=== PATIENT | male | born 1955 ===

== ENCOUNTER 2018-08-21 07:16 | Inpatient (IN) | payer MEDICARE, MEDICAID ==
--- NOTE | 2018-08-21 07:34 | ED PDOC ---
Arrival/HPI - General Historian: Patient - History of Present Illness Narrative History of Present Illness (Text): 08/21/18 07:44 Patient is a 66 yo male with HIV, HCV, kidney disease, and unspecified heart disease who presents with cough and shortness of breath. Patient is a poor historian. He states that he has had symptoms for over a week. He was [place] [facility] [place] where he states he was treated for pneumonia. He does not think they discharged him on any medications. Patient is unsure of his medications in general and is not sure if he is on HIV meds. Patient says cough is productive of nonbloody white sputum. Patient says that he has fevers, chills, and sweats. He also endorses a 15 lb unintentional weight loss over the past month. He reports decreased appetite and nonbloody diarrhea. Time/Duration: > week <Swapna Baig - Last Filed: 08/21/18 10:17> <Dewayne Hartley - Last Filed: 08/22/18 07:18> - General Chief Complaint: Shortness Of Breath Time Seen by Provider: 08/21/18 07:17 Past Medical History - Provider Review Nursing Documentation Reviewed: Yes - Infectious Disease Hx of Infectious Diseases: None - Tetanus Immunization Tetanus Immunization: Unknown - Hematological/Oncological Hx Hepatitis C: Yes Other/Comment: liver failure - Integumentary Hx Dermatological Disorder: No - Musculoskeletal/Rheumatological Hx Musculoskeletal Disorders: No - Psychiatric Hx Substance Use: No - Anesthesia Hx Anesthesia Reactions: No <Swapna Baig - Last Filed: 08/21/18 10:17> Family/Social History Family/Social History: Unknown Family HX Smoking Status: Current Some Days Smoker Hx Alcohol Use: No (quit) Hx Substance Use: No <Swapna Baig - Last Filed: 08/21/18 10:17> Allergies/Home Meds <Swapna Baig - Last Filed: 08/21/18 10:17> <Dewayne Hartley - Last Filed: 08/22/18 07:18> Allergies/Adverse Reactions: Allergies No Known Allergies Allergy (Verified 08/21/18 07:32) Home Medications: Home Meds Medication Instructions Recorded Confirmed Cholecalciferol [Vitamin D] 50,000 unit PO QWK 08/21/18 08/21/18 Cyanocobalamin [Vitamin B12 1000 1 gm PO DAILY 08/21/18 08/21/18 mcg Tab] Furosemide [Lasix] 40 mg PO DAILY 08/21/18 08/21/18 Lactulose [Generlac] 10 gm PO DAILY PRN 08/21/18 08/21/18 Midodrine [Proamatine] 5 mg PO TID 08/21/18 08/21/18 Pantoprazole Sodium [Protonix] 40 mg PO BID 08/21/18 08/21/18 Propranolol [Propranolol HCl] 10 mg PO BID 08/21/18 08/21/18 Spironolactone [Aldactone] 25 mg PO BID 08/21/18 08/21/18 Review of Systems - Review of Systems Constitutional: Fatigue, Weight Change, Fevers, Night Sweats Eyes: Normal ENT: Normal Respiratory: SOB, Cough, Sputum, Wheezing Cardiovascular: absent: Chest Pain, Palpitations, Edema Gastrointestinal: Abdominal Pain, Diarrhea, Anorexia. absent: Nausea, Vomiting Genitourinary Male: absent: Dysuria, Hematuria Musculoskeletal: absent: Arthralgias Skin: absent: Rash, Pruritis, Skin Lesions Neurological: absent: Headache, Dizziness, Focal Weakness Endocrine: Diaphoresis Hemo/Lymphatic: absent: Adenopathy, Easy Bleeding, Easy Bruising <Swapna Baig - Last Filed: 08/21/18 10:17> Physical Exam Vital Signs Reviewed: Yes Vital Signs Temp Pulse Resp BP Pulse Ox 08/21/18 07:33 97.8 F 64 20 116/73 97 Temperature: Afebrile Blood Pressure: Normal Pulse: Regular Respiratory Rate: Normal Appearance: Positive for: Ill-Appearing, Cachectic Pain Distress: None Mental Status: Positive for: Alert and Oriented X 3 - Systems Exam Head: Present: Other (dry skin lesions on scalp, bald patches of hair) Pupils: Present: PERRL Extroacular Muscles: Present: EOMI Conjunctiva: Present: Normal Mouth: Present: Dry, Other (no thrush) Pharnyx: No: ERYTHEMA, EXUDATE Neck: Present: Normal Range of Motion. No: Lymphadenopathy Respiratory/Chest: Present: Wheezes (diffuse), Decreased Breath Sounds, Rales (bibasilar) Cardiovascular: Present: Regular Rate and Rhythm, Other (distant) Abdomen: No: Tenderness, Distention Upper Extremity: Present: Neurovascularly Intact. No: Edema Lower Extremity: Present: Neurovascularly Intact. No: Edema Neurological: Present: GCS=15, CN II-XII Intact, Speech Normal Skin: Present: Warm, Dry, Normal Color Psychiatric: Present: Alert, Oriented x 3 <Swapna Baig - Last Filed: 08/21/18 10:17> Vital Signs Temp Pulse Resp BP Pulse Ox 08/21/18 11:28 73 18 101/64 100 08/21/18 07:41 20 100 08/21/18 07:33 97.8 F 64 20 116/73 97 <NaeemDewayne - Last Filed: 08/22/18 07:18> Medical Decision Making ED Course and Treatment: 08/21/18 08:12 CBC, CMP, Mg, Ph PT/INR/PTT LDH CXR EKG Ibrahim cultures Stool studies 08/21/18 08:[address] Valencia who accepts patient to hospitalist service. Re-evaluation Time: 08:59 Reassessment Condition: Unchanged - Lab Interpretations Lab Results: 08/21/18 08:20 08/21/18 08:20 Lab Results 08/21/18 08:40: NT-Pro-B Natriuret Pep 1790 H 08/21/18 08:40: Blood Type Confirm B POSITIVE 08/21/18 08:40: pO2 34, VBG pH 7.23 L, VBG pCO2 41.0, VBG HCO3 17.2 L, VBG Total CO2 18.5 L, VBG O2 Sat (Calc) 64.9, VBG Base Excess -9.9 L, VBG Potassium 3.7, Glucose 100, Lactate 1.3, FiO2 21.0, Sodium 135.0, Chloride 111.0 H, Venous Blood Potassium 3.7 08/21/18 08:20: Blood Type B POSITIVE, Antibody Screen Negative, BBK History Lashon cked No verified bt 08/21/18 08:20: PT 11.8, INR 1.04, APTT 33.7 08/21/18 08:20: Sodium 138, Potassium 3.8, Chloride 112 H, Carbon Dioxide 17 L, Anion Gap 13, BUN 48 H, Creatinine 3.2 H, Est GFR ( Amer) 24, Est GFR (Non-Af Amer) 20, Random Glucose 104, Calcium 8.1 L, Phosphorus 2.6, Magnesium 1.7, Total Bilirubin 0.6, AST 48, ALT 16, Alkaline Phosphatase 216 H, Lactate Dehydrogenase 505, Total Protein 7.2, Albumin 2.8 L, Globulin 4.3, Albumin/Globulin Ratio 0.7 L 08/21/18 08:20: WBC 8.9, RBC 3.89, Hgb 10.9 L, Hct 33.6 L, MCV 86.4, MCH 28.0, MCHC 32.4, RDW 18.7 H, Plt Count 132, MPV 9.4, Neut % (Auto) 77.3 H, Lymph % (Auto) 15.3 L, Meade % (Auto) 5.1, Eos % (Auto) 2.1, Baso % (Auto) 0.2, Lymph # (Auto) 1.4, Meade # (Auto) 0.5, Eos # (Auto) 0.2, Baso # (Auto) 0.02, Absolute Neuts (auto) 6.90 H I have reviewed the lab results: Yes Interpretation: Abnormal lab values (elev BUN, Cr, BNP, low Hgb) - RAD Interpretation Narrative RAD Interpretations (Text): 08/21/18 09:09 CXR- unremarkable 08/21/18 10:17 CT chest: There is evidence of COPD with hyperaeration of the lungs. There is a bulla along the right chest wall at the junction of the upper and lower lobe. There is a minimal infiltrate at the left lung base and along the right lateral chest wall in the lower lobe. These findings may represent chronic scarring. There is also a minimal interstitial infiltrate or scar in the right middle lobe. Radiology Orders: CXR CT chest Laboratory Analyst: ED Physician - EKG Interpretation EKG Interpretation (Text): 08/21/18 08:20 NSR 68 bpm, low voltage Interpreted by ED Physician: Yes Type: 12 lead EKG Comparison: No previous EKG avail. - Medication Orders Current Medication Orders: 08/21/18 08:14 Solu-Medrol 125 mg IVP Douneb x3 08/21/18 08:18 NS @ 60 cc/hr 08/21/18 10:14 Sodium Chloride (Sodium Chloride 0.9%) 1,000 mls @ 60 mls/hr IV [id number] STA Stop: 08/22/18 00:57 Last Admin: 08/21/18 08:35 Dose: 60 mls/hr eMAR Start Stop Document 08/21/18 08:35 MR (Rec: 08/21/18 08:36 [id number]) Intravenous Solution Start Date 08/21/18 Start Time 08:36 Azithromycin (Zithromax 500mg In Ns) 500 mg in 250 mls @ 167 mls/hr IVPB STAT STA; Protocol Stop: 08/21/18 10:23 Discontinued Medications Albuterol Sulfate (Albuterol 0.083% Inhal Claudine (2.5 Mg/3 Ml) Ud) 2.5 mg INH STAT STA Stop: 08/21/18 09:02 Albuterol/Ipratropium (Duoneb 3 Mg/0.5 Mg (3 Ml) Ud) 3 ml IH STAT STA Stop: 08/21/18 08:01 Last Admin: 08/21/18 08:35 Dose: 3 ml Albuterol/Ipratropium (Duoneb 3 Mg/0.5 Mg (3 Ml) Ud) 3 ml IH Q15M SUKUMAR Stop: 08/21/18 08:46 Methylprednisolone (Solu-Medrol) 125 mg IVP STAT STA Stop: 08/21/18 08:01 Last Admin: 08/21/18 08:35 Dose: 125 mg IVP Administration Document 08/21/18 08:35 MR (Rec: 08/21/18 08:35 [id number]) Charges for Administration # of IVP Administrations 1 <Swapna Baig - Last Filed: 08/21/18 10:17> - Lab Interpretations Lab Results: pO2 34 mm/Hg (30-55) 08/21/18 08:40 VBG pH 7.23 (7.32-7.43) L 08/21/18 08:40 VBG pCO2 41.0 (40-60) 08/21/18 08:40 VBG HCO3 17.2 mmol/l (21-28) L 08/21/18 08:40 VBG Total CO2 18.5 mmol.L (22-28) L 08/21/18 08:40 VBG O2 Sat (Calc) 64.9 % (40-65) 08/21/18 08:40 VBG Base Excess -9.9 mmol/L (0.0-2.0) L 08/21/18 08:40 VBG Potassium 3.7 mmol/L (3.6-5.2) 08/21/18 08:40 Sodium 135.0 mmol/L (132-148) 08/21/18 08:40 Chloride 111.0 mmol/L (98-107) H 08/21/18 08:40 Glucose 100 mg/dl (75-110) 08/21/18 08:40 Lactate 1.3 mmol/L (0.7-2.1) 08/21/18 08:40 FiO2 21.0 % 08/21/18 08:40 PT 11.8 SECONDS (9.4-12.5) 08/21/18 08:20 INR 1.04 08/21/18 08:20 APTT 33.7 Seconds (26.9-38.3) 08/21/18 08:20 NT-Pro-B Natriuret Pep 1790 pg/mL (0-450) H 08/21/18 08:40 Total Bilirubin 0.6 mg/dL (0.2-1.3) 08/21/18 08:20 AST 48 U/L (17-59) 08/21/18 08:20 ALT 16 U/L (7-56) 08/21/18 08:20 Alkaline Phosphatase 216 U/L (38-126) H 08/21/18 08:20 Total Protein 7.2 g/dL (5.8-8.3) 08/21/18 08:20 Albumin 2.8 g/dL (3.0-4.8) L 08/21/18 08:20 Globulin 4.3 gm/dL 08/21/18 08:20 Albumin/Globulin Ratio 0.7 (1.1-1.8) L 08/21/18 08:20 08/21/18 08:20 08/21/18 08:20 Lab Results 08/21/18 08:40: Hepatitis A IgM Ab Negative, Hep Bs Antigen Negative, Hep B Core IgM Ab Negative, Hepatitis C Antibody Negative 08/21/18 08:40: NT-Pro-B Natriuret Pep 1790 H 08/21/18 08:40: Blood Type Confirm B POSITIVE 08/21/18 08:40: pO2 34, VBG pH 7.23 L, VBG pCO2 41.0, VBG HCO3 17.2 L, VBG Total CO2 18.5 L, VBG O2 Sat (Calc) 64.9, VBG Base Excess -9.9 L, VBG Potassium 3.7, Glucose 100, Lactate 1.3, FiO2 21.0, Sodium 135.0, Chloride 111.0 H, Venous Blood Potassium 3.7 08/21/18 08:20: Blood Type B POSITIVE, Antibody Screen Negative, BBK History Checked No verified bt 08/21/18 08:20: PT 11.8, INR 1.04, APTT 33.7 08/21/18 08:20: Sodium 138, Potassium 3.8, Chloride 112 H, Carbon Dioxide 17 L, Anion Gap 13, BUN 48 H, Creatinine 3.2 H, Est GFR ( Amer) 24, Est GFR (Non-Af Amer) 20, Random Glucose 104, Calcium 8.1 L, Phosphorus 2.6, Magnesium 1.7, Total Bilirubin 0.6, AST 48, ALT 16, Alkaline Phosphatase 216 H, Lactate Dehydrogenase 505, Total Protein 7.2, Albumin 2.8 L, Globulin 4.3, Albumin/Globulin Ratio 0.7 L 08/21/18 08:20: WBC 8.9, RBC 3.89, Hgb 10.9 L, Hct 33.6 L, MCV 86.4, MCH 28.0, MCHC 32.4, RDW 18.7 H, Plt Count 132, MPV 9.4, Neut % (Auto) 77.3 H, Lymph % (Auto) 15.3 L, Meade % (Auto) 5.1, Eos % (Auto) 2.1, Baso % (Auto) 0.2, Lymph # (Auto) 1.4, Meade # (Auto) 0.5, Eos # (Auto) 0.2, Baso # (Auto) 0.02, Absolute Neuts (auto) 6.90 H - RAD Interpretation Radiology Orders: 08/21/18 07:35 CXR [CHEST PORTABLE] [RAD] Stat 08/21/18 08:25 CHEST W/O CONTRAST [CT] Stat - Medication Orders Current Medication Orders: Albuterol/Ipratropium (Duoneb 3 Mg/0.5 Mg (3 Ml) Ud) 3 ml IH [id number] SUKUMAR Last Admin: 08/22/18 02:59 Dose: Not Given Non-Admin Reason: Patient Refused Albuterol/Ipratropium (Duoneb 3 Mg/0.5 Mg (3 Ml) Ud) 3 ml IH Q2H PRN PRN Reason: Shortness of Breath Furosemide (Lasix) 40 mg PO DAILY [facility] Guaifenesin (Robitussin) 100 mg PO Q4H PRN PRN Reason: Cough Heparin Sodium (Porcine) (Heparin) 5,000 units SC Q12 SUKUMAR; Protocol Last Admin: 08/21/18 21:37 Dose: 5,000 units Subcutaneous Administrations Document 08/21/18 21:37 PCU (Rec: 08/21/18 21:37 [place] [facility] [id number] Injection Site MAR Injection Site Right Abdomen Charges for Administration # of Subcutaneous Administrations 1 Cefepime HCl (Maxipime 2gm) 2 gm in 100 mls @ 100 mls/hr IVPB DAILY [facility]; Protocol Stop: 08/27/18 10:01 Azithromycin (Zithromax 500mg In Ns) 500 mg in 250 mls @ 167 mls/hr IVPB DAILY [facility]; Protocol Methylprednisolone (Solu-Medrol) 40 mg IVP DAILY [facility] Midodrine (Proamatine) 5 mg PO TID [facility] Last Admin: 08/21/18 17:39 Dose: 5 mg Pantoprazole Sodium (Protonix Ec Tab) 40 mg PO 0600,1600 [facility] Last Admin: 08/22/18 05:40 Dose: 40 mg Propranolol HCl (Inderal) 10 mg PO BID [facility] Last Admin: 08/21/18 17:39 Dose: 10 mg MAR Pulse and Blood Pressure Document 08/21/18 17:39 [facility] (Rec: 08/21/18 17:42 [id number] Blood Pressure Blood Pressure (100/60-150/90) 115/71 Spironolactone (Aldactone) 25 mg PO DAILY [facility] Discontinued Medications Albuterol Sulfate (Albuterol 0.083% Inhal Claudine (2.5 Mg/3 Ml) Ud) 2.5 mg INH STAT STA Stop: 08/21/18 09:02 Last Admin: 08/21/18 11:03 Dose: 2.5 mg Albuterol/Ipratropium (Duoneb 3 Mg/0.5 Mg (3 Ml) Ud) 3 ml IH STAT STA Stop: 08/21/18 08:01 Last Admin: 08/21/18 08:35 Dose: 3 ml Albuterol/Ipratropium (Duoneb 3 Mg/0.5 Mg (3 Ml) Ud) 3 ml IH Q15M SUKUMAR Stop: 08/21/18 08:46 Last Admin: 08/21/18 10:31 Dose: 3 ml Sodium Chloride (Sodium Chloride 0.9%) 1,000 mls @ 60 mls/hr IV .[id number] STA Stop: 08/22/18 00:57 Last Admin: 08/21/18 08:35 Dose: 60 mls/hr eMAR Start Stop Document 08/21/18 08:35 MR (Rec: 08/21/18 08:36 MR [id number]) Intravenous Solution Start Date 08/21/18 Start Time 08:36 Azithromycin (Zithromax 500mg In Ns) 500 mg in 250 mls @ 167 mls/hr IVPB STAT STA; Protocol Stop: 08/21/18 10:23 Last Admin: 08/21/18 10:25 Dose: 167 mls/hr eMAR Start Stop Document 08/21/18 10:25 MR (Rec: 08/21/18 10:30 MR [id number]) Intravenous Solution Start Date 08/21/18 Start Time 10:30 End Date 08/21/18 End time 12:00 Total Infusion Time 90 Vancomycin HCl (Vancomycin 1gm) 1 gm in 250 mls @ 167 mls/hr IVPB STAT STA; Protocol Stop: 08/22/18 00:54 Last Admin: 08/21/18 23:42 Dose: 167 mls/hr eMAR Start Stop Document 08/21/18 23:42 PCU (Rec: 08/21/18 23:43 [place] [facility] [id number] Intravenous Solution Start Date 08/21/18 Start Time 23:43 End Date 08/22/18 End time 01:13 Total Infusion Time 90 Methylprednisolone (Solu-Medrol) 125 mg IVP STAT STA Stop: 08/21/18 08:01 Last Admin: 08/21/18 08:35 Dose: 125 mg IVP Administration Document 08/21/18 08:35 MR (Rec: 05/18/19 08:35 MR [id number]) Charges for Administration # of IVP Administrations 1 Ondansetron HCl (Zofran Inj) 4 mg IVP ONCE ONE Stop: 08/22/18 05:59 Last Admin: 08/22/18 06:25 Dose: 4 mg IVP Administration Document 08/22/18 06:25 PCU (Rec: 08/22/18 06:25 [place] [facility] [id number] Charges for Administration # of IVP Administrations 1 Pneumococcal Polyvalent Vaccine (Pneumovax 23 Vaccine) 0.5 ml IM .ONCE ONE Stop: 08/21/18 14:01 <Dewayne Hartley - Last Filed: 08/22/18 07:18> Disposition/Present on Arrival - Present on Arrival Any Indicators Present on Arrival: No History of DVT/PE: No History of Uncontrolled Diabetes: No Urinary Catheter: No History of Decub. Ulcer: No History Surgical Site Infection Following: None - Disposition Have Diagnosis and Disposition been Completed?: Yes Disposition Time: 09:01 Patient Plan: Admission <Swapna Baig - Last Filed: 08/21/18 10:17> <Dewayne Hartley - Last Filed: 08/22/18 07:18> - Disposition Diagnosis: Respiratory tract infection Disposition: HOSPITALIZED Condition: GUARDED
[2018-08-21] MEDS ORDERED: Albuterol-Ipratrop 3 mg / 0.5 (3 ml) UD IH STA (08:00)
[2018-08-21] MEDS ORDERED: Sodium Chloride 0.9% 1,000 ML IV STA (08:18)
[2018-08-21 08:32] LABS: BASO # 0.02 K/mm3 (0.0-2.0); BASO % 0.2 % (0.0-3.0); EOS # 0.2 (0.0-0.7); EOS % 2.1 % (1.5-5.0); HEMOGLOBIN 10.9 g/dL (14.0-18.0); LYMPH # 1.4 (1.2-3.4); LYMPH % 15.3 % (22.0-35.0); MEAN CELL VOLUME 86.4 fl (80.0-105.0); MEAN CORPUSCULAR HGB CONC 32.4 g/dl (31.0-37.0); MEAN PLATELET VOLUME 9.4 fl (7.0-11.0); MONO # 0.5 (0.1-0.6); MONO % 5.1 % (1.0-6.0); RBC 3.89 10^6/uL (3.5-6.1); RED CELL DISTRIBUTION WIDTH 18.7 % (11.5-14.5); WHITE BLOOD COUNT 8.9 10^3/uL (4.5-11.0)
[2018-08-21 08:41] LABS: INR 1.04; PARTIAL THROMBOPLASTIN TIME 33.7 Seconds (26.9-38.3); PROTHROMBIN TIME 11.8 SECONDS (9.4-12.5)
--- NOTE | 2018-08-21 08:41 | RAD ---
Date of service: 08/21/2018 HISTORY: cough COMPARISON: No prior. TECHNIQUE: 1 view obtained. FINDINGS: LUNGS: No active pulmonary disease. PLEURA: No significant pleural effusion identified, no pneumothorax apparent. CARDIOVASCULAR: Aortic calcification Normal cardiac size. No pulmonary vascular congestion. OSSEOUS STRUCTURES: No significant abnormalities. VISUALIZED UPPER ABDOMEN: Normal. OTHER FINDINGS: None. IMPRESSION: No active disease.
[2018-08-21 08:48] LABS: ALB/GLOB RATIO 0.7 (1.1-1.8); ALBUMIN 2.8 g/dL (3.0-4.8); CALCIUM 8.1 mg/dL (8.4-10.5)
[2018-08-21] MEDS ORDERED: Azithromycin 500MG/NS 250ml 500 MG/250 ML BAG IVPB STA (08:54)
[2018-08-21] MEDS ORDERED: Albuterol 0.083% Inhal Sol (2.5 mg/3 mL) UD INH STA (09:01)
[2018-08-21 09:06] LABS: VENOUS BLOOD GAS BASE EXCESS -9.9 mmol/L (0.0-2.0); VENOUS BLOOD GAS PO2 34 mm/Hg (30-55); VENOUS BLOOD PH 7.23 (7.32-7.43)
--- NOTE | 2018-08-21 09:39 | CT ---
Date of service: 08/21/2018 PROCEDURE: CT Chest without contrast HISTORY: persistent cough COMPARISON: None available. TECHNIQUE: Contiguous axial images were obtained through the chest without intravenous contrast enhancement. Sagittal and coronal reconstructions were performed. Radiation dose: Total exam DLP = 151.99 mGy-cm. This CT exam was performed using one or more of the following dose reduction techniques: Automated exposure control, adjustment of the mA and/or kV according to patient size, and/or use of iterative reconstruction technique. FINDINGS: LUNGS: There is evidence of COPD with hyperaeration of the lungs. There is a bulla along the right chest wall at the junction of the upper and lower lobe. There is a minimal infiltrate at the left lung base and along the right lateral chest wall in the lower lobe. These findings may represent chronic scarring. There is also a minimal interstitial infiltrate or scar in the right middle lobe. MEDIASTINUM: Unremarkable thoracic aorta. No aneurysm. Normal sized heart. Main pulmonary artery unremarkable. No vascular congestion. No lymphadenopathy. Aortic calcification PLEURA: No pleural fluid. No pneumothorax. BONES: No fracture. No destructive lesion. UPPER ABDOMEN: Grossly unremarkable. OTHER FINDINGS: None. IMPRESSION: There is evidence of COPD with hyperaeration of the lungs. There is a bulla along the right chest wall at the junction of the upper and lower lobe. There is a minimal infiltrate at the left lung base and along the right lateral chest wall in the lower lobe. These findings may represent chronic scarring. There is also a minimal interstitial infiltrate or scar in the right middle lobe.
[2018-08-21] MEDS: Albuterol-Ipratrop 3 mg / 0.5 (3 ml) UD IH SCH ×4 (10:20→19:59)
--- NOTE | 2018-08-21 10:31 | CP.PCM.HP ---
<Silver Manzo - Last Filed: 08/21/18 12:02> History of Present Illness - History of Present Illness History of Present Illness: H&P for hospitalist service - FionaPhoenix Manzo PGY3 cc: shortness of breath HPI: Patient is a 63yo male with past medical history of HIV (unknown CD4 count or viral load), Hepatitis C, CKD that presents to [facility] with c/o shortness of breath. He reports that for the past week he has been having shortness of breath associated with nonproductive cough, fevers, chills, fatigue/lethargy. He also endorsed epigastric abdominal pain associated with diarrhea (4 loose, nonbloody bowel movements yesterday). Patient states that he had been at [facility] [place] [facility] a few days ago and was there for approximately 4 days when he signed out against medical advice. He reported being treated for the same complaint. Mr. Haq also noted that he had been f ollowing up with the [facility] hepatology clinic for cirrhosis treatment and received paracentesis every few weeks. Denies chest pain, palpitations, nausea, vomiting, hematemesis, hematochezia, melena, numbness, tingling. 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[employer]) Family Hx: Mother: Diabetes; Father: denies PMD: Grace Castillo Medications verified by [facility] ([facility]): Midodrine 5mg TID, Propranolol 10mg BID, Spironolactone 25mg BID, Lasix 40mg daily, Protonix 40mg BID, Lactulose PRN Present on Admission - Present on Admission Any Indicators Present on Admission: No Past Patient History - Infectious Disease Hx of Infectious Diseases: None - Tetanus Immunizations Tetanus Immunization: Unknown - Past Social History Smoking Status: Current Some Days Smoker - HEMATOLOGICAL/ONCOLOGICAL Hx Hepatitis C: Yes Other/Comment: liver failure - INTEGUMENTARY Hx Dermatological Problems: No - MUSCULOSKELETAL/RHEUMATOLOGICAL Hx Musculoskeletal Disorders: No - PSYCHIATRIC Hx Substance Use: No - ANESTHESIA Hx Anesthesia Reactions: No Meds Home Medications: Home Medication List Medication Instructions Recorded Confirmed Type Cholecalciferol (Vitamin D3) 50,000 unit PO QWK #2 capsule 08/25/18 Rx [Vitamin D3] Cyanocobalamin [Vitamin B12 1000 1,000 mcg PO DAILY #7 tab 08/25/18 Rx mcg Tab] Furosemide [Lasix] 40 mg PO DAILY 7 Days #7 tab 08/25/18 Rx Lactulose [Generlac] 10 gm PO DAILY PRN 7 Days #7 dose 08/25/18 Rx Magnesium Oxide [Mag-Ox] 400 mg PO BID #14 tab 08/25/18 Rx Midodrine [Proamatine] 5 mg PO TID 7 Days #21 tab 08/25/18 Rx Pantoprazole Sodium [Protonix] 40 mg PO BID 7 Days #14 tablet.dr 08/25/18 Rx Phosphorus/Potassium/Sodium 1 pkt PO DAILY #7 packet 08/25/18 Rx [Neutra-Phos] Propranolol [Inderal] 10 mg PO BID 7 Days #14 tab 08/25/18 Rx Rifaximin [Xifaxan] 550 mg PO BID #14 tablet 08/25/18 Rx Simethicone [Gas Relief] 125 mg PO DAILY #7 capsule 08/25/18 Rx Spironolactone [Aldactone] 25 mg PO DAILY #7 tab 08/25/18 Rx Allergies/Adverse Reactions: Allergies Allergy/AdvReac Type Severity Reaction Status Date / Time No Known Allergies Allergy Verified 08/21/18 07:32 Physical Exam - Constitutional Appears: Cachectic, Chronically Ill - Head Exam Head Exam: ATRAUMATIC, NORMOCEPHALIC - Eye Exam Eye Exam: EOMI, Scleral icterus Pupil Exam: PERRL - ENT Exam ENT Exam: Mucous Membranes Moist - Neck Exam Neck exam: Positive for: Normal Inspection. Negative for: Lymphadenopathy, Tenderness, Thyromegaly - Respiratory Exam Respiratory Exam: Decreased Breath Sounds. absent: Rales, Rhonchi, Wheezes - Cardiovascular Exam Cardiovascular Exam: +S1, +S2. absent: Gallop, Rubs - GI/Abdominal Exam GI & Abdominal Exam: Organomegaly, Soft, Tenderness (epigastric). absent: Rebound, Rigid - Extremities Exam Extremities exam: Positive for: normal inspection. Negative for: pedal edema, tenderness - Neurological Exam Neurological exam: Alert, CN II-XII Intact, Oriented x3 - Psychiatric Exam Psychiatric exam: Normal Affect, Normal Mood - Skin Skin Exam: Dry, Intact, Normal Color, Warm Results - Vital Signs Recent Vital Signs: Last Vital Signs Temp 97.8 F 08/21/18 07:33 Pulse 64 08/21/18 07:33 Resp 20 08/21/18 07:41 BP 116/73 08/21/18 07:33 Pulse Ox 100 08/21/18 07:41 - Labs Result Diagrams: 08/21/18 08:20 08/21/18 08:20 Labs: Laboratory Results - last 24 hr 08/21/18 08/21/18 08/21/18 08:20 08:20 08:20 WBC 8.9 RBC 3.89 Hgb 10.9 L Hct 33.6 L MCV 86.4 MCH 28.0 MCHC 32.4 RDW 18.7 H Plt Count 132 MPV 9.4 Neut % (Auto) 77.3 H Lymph % (Auto) 15.3 L Mclean % (Auto) 5.1 Eos % (Auto) 2.1 Baso % (Auto) 0.2 Lymph # (Auto) 1.4 Mclean # (Auto) 0.5 Eos # (Auto) 0.2 Baso # (Auto) 0.02 Absolute Neuts (auto) 6.90 H PT 11.8 INR 1.04 APTT 33.7 pO2 VBG pH VBG pCO2 VBG HCO3 VBG Total CO2 VBG O2 Sat (Calc) VBG Base Excess VBG Potassium Glucose Lactate FiO2 Sodium 138 Potassium 3.8 Chloride 112 H Carbon Dioxide 17 L Anion Gap 13 BUN 48 H Creatinine 3.2 H Est GFR ( Amer) 24 Est GFR (Non-Af Amer) 20 Random Glucose 104 Calcium 8.1 L Phosphorus 2.6 Magnesium 1.7 Total Bilirubin 0.6 AST 48 ALT 16 Alkaline Phosphatase 216 H Lactate Dehydrogenase 505 NT-Pro-B Natriuret Pep Total Protein 7.2 Albumin 2.8 L Globulin 4.3 Albumin/Globulin Ratio 0.7 L Venous Blood Potassium Blood Type Blood Type Confirm Antibody Screen BBK History Checked 08/21/18 08/21/18 08/21/18 08:20 08:40 08:40 WBC RBC Hgb Hct MCV MCH MCHC RDW Plt Count MPV Neut % (Auto) Lymph % (Auto) Mclean % (Auto) Eos % (Auto) Baso % (Auto) Lymph # (Auto) Mclean # (Auto) Eos # (Auto) Baso # (Auto) Absolute Neuts (auto) PT INR APTT pO2 34 VBG pH 7.23 L VBG pCO2 41.0 VBG HCO3 17.2 L VBG Total CO2 18.5 L VBG O2 Sat (Calc) 64.9 VBG Base Excess -9.9 L VBG Potassium 3.7 Glucose 100 Lactate 1.3 FiO2 21.0 Sodium 135.0 Potassium Chloride 111.0 H Carbon Dioxide Anion Gap BUN Creatinine Est GFR ( Amer) Est GFR (Non-Af Amer) Random Glucose Calcium Phosphorus Magnesium Total Bilirubin AST ALT Alkaline Phosphatase Lactate Dehydrogenase NT-Pro-B Natriuret Pep Total Protein Albumin Globulin Albumin/Globulin Ratio Venous Blood Potassium 3.7 Blood Type B POSITIVE Blood Type Confirm B POSITIVE Antibody Screen Negative BBK History Checked No verified bt 08/21/18 08:40 WBC RBC Hgb Hct MCV MCH MCHC RDW Plt Count MPV Neut % (Auto) Lymph % (Auto) Mclean % (Auto) Eos % (Auto) Baso % (Auto) Lymph # (Auto) Mclean # (Auto) Eos # (Auto) Baso # (Auto) Absolute Neuts (auto) PT INR APTT pO2 VBG pH VBG pCO2 VBG HCO3 VBG Total CO2 VBG O2 Sat (Calc) VBG Base Excess VBG Potassium Glucose Lactate FiO2 Sodium Potassium Chloride Carbon Dioxide Anion Gap BUN Creatinine Est GFR ( Amer) Est GFR (Non-Af Amer) Random Glucose Calcium Phosphorus Magnesium Total Bilirubin AST ALT Alkaline Phosphatase Lactate Dehydrogenase NT-Pro-B Natriuret Pep 1790 H Total Protein Albumin Globulin Albumin/Globulin Ratio Venous Blood Potassium Blood Type Blood Type Confirm Antibody Screen BBK History Checked Assessment & Plan - Assessment and Plan (Free Text) Plan: 63yo male with history of hepatitis C, HIV with unknown viral load/CD4 count, CKD, cirrhosis, COPD presents to [facility] with c/o shortness of breath associated with fever, chills, cough 1. Shortness of breath r/o pneumonia vs COPD vs bronchitis -afebrile, no leukocytosis -BP within normal limits -O2 via nasal cannula -HOB > 30' -CXR reviewed; revealed no active disease -CT Chest pending -Patient given azithromycin in the ED -Blood, urine, sputum and stool cultures pending -Procalcitonin is pending -Strep Pna and legionella pending -Hepatitis panel pending -Continue cefepime 2g daily and azithromycin -duoneb nikki and PRN -robitussin for cough -solumedrol 40 BID -ID consulted -Dr. Romeo 2. HIV/AIDS -4th gen HIV panel pending -CD4 count pending -ID consulted 3. Hepatitis C -Hepatitis panel pending 4. GI/DVT Prophylaxis -Protonix/Heparin Patient seen and case discussed/reviewed with attending, Dr. Valencia <Lydia Valencia - Last Filed: 08/25/18 15:44> Results - Vital Signs Recent Vital Signs: Last Vital Signs Temp 97.4 F L 08/21/18 14:00 Pulse 68 08/21/18 14:00 Resp 18 08/21/18 14:00 BP 115/71 08/21/18 14:00 Pulse Ox 99 08/21/18 14:00 - Labs Result Diagrams: 08/25/18 06:30 08/25/18 06:30 Labs: Laboratory Results - last 24 hr 08/21/18 08/21/18 08/21/18 08:20 08:20 08:20 WBC 8.9 RBC 3.89 Hgb 10.9 L Hct 33.6 L MCV 86.4 MCH 28.0 MCHC 32.4 RDW 18.7 H Plt Count 132 MPV 9.4 Neut % (Auto) 77.3 H Lymph % (Auto) 15.3 L Mclean % (Auto) 5.1 Eos % (Auto) 2.1 Baso % (Auto) 0.2 Lymph # (Auto) 1.4 Mclean # (Auto) 0.5 Eos # (Auto) 0.2 Baso # (Auto) 0.02 Absolute Neuts (auto) 6.90 H PT 11.8 INR 1.04 APTT 33.7 pO2 VBG pH VBG pCO2 VBG HCO3 VBG Total CO2 VBG O2 Sat (Calc) VBG Base Excess VBG Potassium Glucose Lactate FiO2 Sodium 138 Potassium 3.8 Chloride 112 H Carbon Dioxide 17 L Anion Gap 13 BUN 48 H Creatinine 3.2 H Est GFR ( Amer) 24 Est GFR (Non-Af Amer) 20 Random Glucose 104 Calcium 8.1 L Phosphorus 2.6 Magnesium 1.7 Total Bilirubin 0.6 AST 48 ALT 16 Alkaline Phosphatase 216 H Lactate Dehydrogenase 505 NT-Pro-B Natriuret Pep Total Protein 7.2 Albumin 2.8 L Globulin 4.3 Albumin/Globulin Ratio 0.7 L Venous Blood Potassium Blood Type Blood Type Confirm Antibody Screen BBK History Checked 08/21/18 08/21/18 08/21/18 08:20 08:40 08:40 WBC RBC Hgb Hct MCV MCH MCHC RDW Plt Count MPV Neut % (Auto) Lymph % (Auto) Mclean % (Auto) Eos % (Auto) Baso % (Auto) Lymph # (Auto) Mclean # (Auto) Eos # (Auto) Baso # (Auto) Absolute Neuts (auto) PT INR APTT pO2 34 VBG pH 7.23 L VBG pCO2 41.0 VBG HCO3 17.2 L VBG Total CO2 18.5 L VBG O2 Sat (Calc) 64.9 VBG Base Excess -9.9 L VBG Potassium 3.7 Glucose 100 Lactate 1.3 FiO2 21.0 Sodium 135.0 Potassium Chloride 111.0 H Carbon Dioxide Anion Gap BUN Creatinine Est GFR ( Amer) Est GFR (Non-Af Amer) Random Glucose Calcium Phosphorus Magnesium Total Bilirubin AST ALT Alkaline Phosphatase Lactate Dehydrogenase NT-Pro-B Natriuret Pep Total Protein Albumin Globulin Albumin/Globulin Ratio Venous Blood Potassium 3.7 Blood Type B POSITIVE Blood Type Confirm B POSITIVE Antibody Screen Negative BBK History Checked No verified bt 08/21/18 08:40 WBC RBC Hgb Hct MCV MCH MCHC RDW Plt Count MPV Neut % (Auto) Lymph % (Auto) Mclean % (Auto) Eos % (Auto) Baso % (Auto) Lymph # (Auto) Mclean # (Auto) Eos # (Auto) Baso # (Auto) Absolute Neuts (auto) PT INR APTT pO2 VBG pH VBG pCO2 VBG HCO3 VBG Total CO2 VBG O2 Sat (Calc) VBG Base Excess VBG Potassium Glucose Lactate FiO2 Sodium Potassium Chloride Carbon Dioxide Anion Gap BUN Creatinine Est GFR ( Amer) Est GFR (Non-Af Amer) Random Glucose Calcium Phosphorus Magnesium Total Bilirubin AST ALT Alkaline Phosphatase Lactate Dehydrogenase NT-Pro-B Natriuret Pep 1790 H Total Protein Albumin Globulin Albumin/Globulin Ratio Venous Blood Potassium Blood Type Blood Type Confirm Antibody Screen BBK History Checked Attending/Attestation - Attestation I have personally seen and examined this patient.: Yes I have fully participated in the care of the patient.: Yes I have reviewed all pertinent clinical information: Yes Notes (Text): 08/25/18 15:36 Attending note; Patient seen and examined with resident in ER. Patient is a poor historian. History is unreliable. Patient is getting upset upon further questioning. we will try to get information from the family. This is his first admission to be on hospital. Patient is a 63yo male with past medical history of HIV (unknown CD4 count or viral load), Hepatitis C, CKD that presents to [facility] with c/o shortness of breath. He reports that for the past week he has been having shortness of breath associated with nonproductive cough, fevers, chills, fatigue/lethargy. 1. Shortness of breath. secondary to likely COPD, possible pneumonia. Chest x-ray shows no active disease. Continue oxygen, DuoNeb and IV Solu-Medrol. Started on IV cefepime and Zithromax. Patient is cachectic. ID evaluation requested. CT chest ordered. 2. Liver cirrhosis/abdominal distention; history of Hep C and alcohol abuse. Continue home propanolol. Continue home lasix and aldactone with home midodrine. Abdominal ultrasound ordered to evaluate the ascites. 3. CKD. Unsure of baseline creatinine. BUN/Cr stable. follow up Closely. 4. Anemia. Likely secondary to chronic disease. No acute bleeding. 5. Diarrhea. C-diff ordered. 6. History of HIV. HIV-1 RNA pending. HIV 1/2 ag/ab pending. ID recommendations appreciated. 7. Thrombocytopenia. Likely secondary to liver cirrhosis. 8. GI/DVT prophylaxis. Protonix/SCDS Palliative care evaluation requested. Patient is cachectic. Patient was recently discharged from [facility]. He is not sure about his diagnosis and treatment options. Patient also states that he follows up with Dr. ysabel Ovalles. We will request medical records from [facility] We will also try to get in touch with family for further information.
[2018-08-21] MEDS ORDERED: guaiFENesin 100 mg/5 ml Syrup UD PO PRN (11:31)
[2018-08-21] MEDS ORDERED: Albuterol-Ipratrop 3 mg / 0.5 (3 ml) UD IH PRN (11:32)
[2018-08-21 13:58] VITALS: BMI 20.3
[2018-08-21] MEDS ORDERED: Pneumococcal 23-Valent Vaccine IM ONE (14:00)
[2018-08-21 16:51] LABS: HEPATITIS B SURFACE AG Negative (NEGATIVE)
[2018-08-21 16:57] LABS: HEPATITIS A IGM NEGATIVE (NEGATIVE); HEPATITIS B CORE AB NEGATIVE (NEGATIVE)
[2018-08-21 17:08] LABS: HEPATITIS C ANTIBODY NEGATIVE (NEGATIVE)
[2018-08-21] MEDS: Pantoprazole 40 mg EC Tab PO SCH (17:42)
--- NOTE | 2018-08-21 19:10 | CARD ---
APPROVED REPORT Date of service: 08/21/2018 EKG Measurement Heart [id number] <Conclusion> Sinus rhythm with fusion complexes Left axis deviation Low voltage QRS Cannot rule out Anterior infarct, age undetermined Abnormal ECG
[2018-08-21] MEDS ORDERED: Vancomycin 1gm in NS 250ml 1 GM/250 ML BAG IVPB STA (23:25)
[2018-08-22] MEDS: Albuterol-Ipratrop 3 mg / 0.5 (3 ml) UD IH SCH ×4 (02:59→20:22)
[2018-08-22] MEDS: Pantoprazole 40 mg EC Tab PO SCH ×2 (05:40→18:00)
[2018-08-22 07:46] LABS: HEMOGLOBIN 9.5 g/dL (14.0-18.0); LYMPH # 0.8 (1.2-3.4); LYMPH % 10.2 % (22.0-35.0); MEAN CELL VOLUME 85.5 fl (80.0-105.0); MEAN CORPUSCULAR HEMOGLOBIN 27.5 pg (25.0-35.0); MEAN CORPUSCULAR HGB CONC 32.1 g/dl (31.0-37.0); MEAN PLATELET VOLUME 9.4 fl (7.0-11.0); MONO # 0.3 (0.1-0.6); MONO % 3.2 % (1.0-6.0); RBC 3.46 10^6/uL (3.5-6.1); RED CELL DISTRIBUTION WIDTH 18.6 % (11.5-14.5); WHITE BLOOD COUNT 8.2 10^3/uL (4.5-11.0)
[2018-08-22 08:12] LABS: ALB/GLOB RATIO 0.6 (1.1-1.8); ALBUMIN 2.4 g/dL (3.0-4.8); CALCIUM 7.9 mg/dL (8.4-10.5)
--- NOTE | 2018-08-22 09:13 | US ---
Date of service: 08/22/2018 HISTORY: hepatitis c , ascites COMPARISON: None. TECHNIQUE: Sonographic evaluation of the abdomen. FINDINGS: LIVER: Measures 13.72 x 6.7 cm. Increased echogenicity of the liver parenchyma. There is an irregular contour consistent with cirrhosis. The liver is hypervascular. Normal directional flow is seen in the hepatic and portal veins. There is a large amount of ascites GALLBLADDER: Removed COMMON BILE DUCT: Measures 3 mm. No stones. No dilatation. PANCREAS: Unremarkable as visualized. No mass. No ductal dilatation. RIGHT KIDNEY: Measures 9.12 x 3.57 x 4.96cm. Normal echogenicity. No calculus, mass, or hydronephrosis. LEFT KIDNEY: Measures 8.04 x 4.0 x 4.17cm. Normal echogenicity. No calculus, mass, or hydronephrosis. Small cysts in the left kidney SPLEEN: Normal in size and contour. No mass. 13.36 x 4.57 AORTA: Not visualized IVC: Not visualized OTHER FINDINGS: None. IMPRESSION: Cirrhosis with severe ascites.
[2018-08-22 09:45] LABS: URINE APPEARANCE CLEAR (CLEAR); URINE BILIRUBIN NEGATIVE (NEGATIVE); URINE BLOOD NEGATIVE (NEGATIVE); URINE COLOR YELLOW (YELLOW); URINE GLUCOSE (UA) NEGATIVE (NEGATIVE); URINE LEUKOCYTE ESTERASE NEGATIVE Leu/uL (NEGATIVE); URINE PROTEIN TRACE mg/dL (<30 mg/dL); URINE UROBILINOGEN 0.2 E.U./dL (<1 E.U./dL)
[2018-08-22] MEDS: MethylPREDNISolone 40 mg Vial IVP SCH (09:50)
[2018-08-22 09:51] LABS: URINE BACTERIA FEW /hpf; URINE RBC 0 - 2 /hpf (0-2); URINE WBC 0 - 2 /hpf (0-6)
[2018-08-22] MEDS: Azithromycin 500MG/NS 250ml 500 MG/250 ML BAG IVPB SCH (09:51)
[2018-08-22] MEDS: Cefepime IV 2 gm in NS 2 GM/100 ML BAG IVPB SCH (09:51)
[2018-08-22 09:57] LABS: CREATININE,RANDOM URINE 189 mg/dL
[2018-08-22 10:19] LABS: BARBITURATES, UR NEGATIVE (NEGATIVE); BENZODIAZEPINES, UR NEGATIVE (NEGATIVE); OPIATES, UR NEGATIVE (NEGATIVE); PHENCYCLIDINE, UR NEGATIVE (NEGATIVE)
[2018-08-22] MEDS ORDERED: Potassium Phosphate 15 MMOLE in Sodium Chloride 0.9% 250 ML IVPB ONE (15:02)
[2018-08-22] MEDS ORDERED: Magnesium Sulfate 2 gm/50 ml 2 GM/50 ML BAG IVPB ONE (15:02)
--- NOTE | 2018-08-22 15:12 | CP.PCM.PN ---
<Je Christiansen - Last Filed: 08/22/18 15:22> Subjective - Date & Time of Evaluation Date of Evaluation: 08/22/18 Time of Evaluation: 08:30 - Subjective Subjective: Je Christiansen DO PGY1 Hospitalist Progress Note for Dr Valencia Patient seen and examined at bedside. He c/o abdominal distention, SOB, and inability to ambulate. He deines fever, chills, CP, palpitations. No acute events overnight Objective - Vital Signs/Intake and Output Vital Signs (last 24 hours): Temp Pulse Resp BP Pulse Ox 98.2 F 89 20 106/62 98 08/21/18 22:40 08/21/18 22:40 08/21/18 22:40 08/22/18 09:50 08/21/18 22:40 Intake and Output: 08/22/18 08/22/18 06:59 18:59 Intake Total 1090 Output Total 1 Balance 1089 - Medications Medications: Current Medications Albuterol/Ipratropium (Duoneb 3 Mg/0.5 Mg (3 Ml) Ud) 3 ml IH [id number] SUKUMAR Last Admin: 08/22/18 13:32 Dose: Not Given Albuterol/Ipratropium (Duoneb 3 Mg/0.5 Mg (3 Ml) Ud) 3 ml IH Q2H PRN PRN Reason: Shortness of Breath Furosemide (Lasix) 40 mg PO DAILY SUKUMAR Guaifenesin (Robitussin) 100 mg PO Q4H PRN PRN Reason: Cough Cefepime HCl (Maxipime 2gm) 2 gm in 100 mls @ 100 mls/hr IVPB DAILY SUKUMAR; Protocol Stop: 08/27/18 10:01 Last Admin: 08/22/18 09:51 Dose: 100 mls/hr Azithromycin (Zithromax 500mg In Ns) 500 mg in 250 mls @ 167 mls/hr IVPB DAILY SUKUMAR; Protocol Last Admin: 08/22/18 09:51 Dose: 167 mls/hr Methylprednisolone (Solu-Medrol) 40 mg IVP DAILY SUKUMAR Last Admin: 08/22/18 09:50 Dose: 40 mg Midodrine (Proamatine) 5 mg PO TID SUKUMAR Last Admin: 08/22/18 13:30 Dose: 5 mg Pantoprazole Sodium (Protonix Ec Tab) 40 mg PO 0600,1600 [facility] Last Admin: 08/22/18 05:40 Dose: 40 mg Propranolol HCl (Inderal) 10 mg PO BID [facility] Last Admin: 08/22/18 09:50 Dose: 10 mg Spironolactone (Aldactone) 25 mg PO DAILY [facility] Last Admin: 08/22/18 09:50 Dose: 25 mg - Labs Labs: 08/22/18 07:00 08/22/18 07:00 PT 11.8 SECONDS (9.4-12.5) 08/21/18 08:20 INR 1.04 08/21/18 08:20 APTT 33.7 Seconds (26.9-38.3) 08/21/18 08:20 Assessment and Plan - Assessment and Plan (Free Text) Assessment: 63 y/o male with PMH of hepatitis C, HIV, CKD, liver cirrhosis, COPD presents with SOB. Found to have massive ascites. Patient is admitted for further work up Plan: Shortness of breath: -likely due to ascites. patient undergoes thoracocentesis x3 weeks -abd US: cirrhosis with severe ascites -afebrile, no leukocytosis -CXR: NAD -BNP 1790 -CT Chest: right lung bulla, chronic scarringin R lung with interstial infiltrate/scar in RML -blood cx negative to date -IR consulted for possible thoracocentesis -cardio consulted Chronic liver cirrhosis in the setting of Hep C infection: -patient f/u in [facility] hepatology clinic -continue home med propranolol 10mg BID -continue home med spironolactone 25mg BID -continue protonix, -continue midodrine 5 mg tid -hold lasix for hypotension -hepatitis panel negative -GI consulted Dr Valencia CKD: -BUN/Cr 46/3.2 -nephrology consulted Anemia: -likely anemia of chronic disease -H/H 9.5/29.6 -continue to monitor. transfuse prn -PT/INR wnl h/o HIV: -f/u HIV ag/ab testing -f/u C. diff testing -procal not elevated f/u pancultures bl, sputum, urine -ID consulted, Dr Romeo PPX: -GI: pepcid -DVT: SCD -PT eval -HHD -registrar assistant referral -palliative care consult Case reviewed and plan discussed with attending Dr Terence Christiansen, DO <Rashida Pratt R - Last Filed: 08/22/18 15:52> Objective - Vital Signs/Intake and Output Vital Signs (last 24 hours): Temp Pulse Resp BP Pulse Ox 97.7 F 74 18 105/67 100 08/22/18 14:00 08/22/18 14:00 08/22/18 14:00 08/22/18 14:00 08/22/18 14:00 Intake and Output: 08/22/18 08/22/18 06:59 18:59 Intake Total 1090 Output Total 1 Balance 1089 - Medications Medications: Current Medications Albuterol/Ipratropium (Duoneb 3 Mg/0.5 Mg (3 Ml) Ud) 3 ml IH [id number] SUKUMAR Last Admin: 08/22/18 13:32 Dose: Not Given Albuterol/Ipratropium (Duoneb 3 Mg/0.5 Mg (3 Ml) Ud) 3 ml IH Q2H PRN PRN Reason: Shortness of Breath Guaifenesin (Robitussin) 100 mg PO Q4H PRN PRN Reason: Cough Cefepime HCl (Maxipime 2gm) 2 gm in 100 mls @ 100 mls/hr IVPB DAILY SUKUMAR; Protocol Stop: 08/27/18 10:01 Last Admin: 08/22/18 09:51 Dose: 100 mls/hr Azithromycin (Zithromax 500mg In Ns) 500 mg in 250 mls @ 167 mls/hr IVPB DAILY SUKUMAR; Protocol Last Admin: 08/22/18 09:51 Dose: 167 mls/hr Magnesium Sulfate (Magnesium Sulfate 2 Gm/50 Ml Water) 2 gm in 50 mls @ 50 mls/hr IVPB ONCE ONE Stop: 08/22/18 16:01 Potassium Phosphate 15 mmole/ (Sodium Chloride) 255 mls @ 42.5 mls/hr IVPB ONCE ONE Stop: 08/22/18 21:01 Methylprednisolone (Solu-Medrol) 40 mg IVP DAILY SUKUMAR Last Admin: 08/22/18 09:50 Dose: 40 mg Midodrine (Proamatine) 5 mg PO TID SUKUMAR Last Admin: 08/22/18 13:30 Dose: 5 mg Pantoprazole Sodium (Protonix Ec Tab) 40 mg PO 0600,1600 SUKUMAR Last Admin: 08/22/18 05:40 Dose: 40 mg Propranolol HCl (Inderal) 10 mg PO BID [facility] Last Admin: 08/22/18 09:50 Dose: 10 mg Spironolactone (Aldactone) 25 mg PO DAILY [facility] Last Admin: 08/22/18 09:50 Dose: 25 mg - Labs Labs: 08/22/18 07:00 08/22/18 07:00 PT 11.8 SECONDS (9.4-12.5) 08/21/18 08:20 INR 1.04 08/21/18 08:20 APTT 33.7 Seconds (26.9-38.3) 08/21/18 08:20 Attending/Attestation - Attestation I have personally seen and examined this patient.: Yes I have fully participated in the care of the patient.: Yes I have reviewed all pertinent clinical information, including history, physical exam and plan: Yes Notes (Text): Patient seen and examined by me with resident at approximately 10:05AM on 08/22/18. Case including HPI, physical exam, and assessment and plan discussed with resident. Agree with above with following additions/corrections. Patient is a 63 year old male with past medical history significant for HIV, he patitis C, liver cirrhosis, ascites, alcohol abuse, and CKD that presented to the emergency room with shortness of breath. Patient states that he is feeling ok. States he feels the same as yesterday. Complains of shortness of breath. Also complains of abdominal pain and states he gets "the fluid removed when by belly gets this big." Patient is asking to have fluid removed. Patient states he is on a liver transplant list. Patient denies any chest pain or palpitations. No nausea or vomiting. No headaches or dizziness. No fevers or chills. No dysuria. Patient states he drank alcohol daily for approximately 40 years and quit 2-3 years ago. Physical exam: General: Awake and alert lying in bed in no acute distress, cachectic appearing HEENT: Normocephalic, atraumatic. Extraocular muscles intact. Pupils equal and reactive, no scleral icterus. Oropharynx is pink and moist. Neck is supple. Cardiovascular: Normal rhythm. Normal S1 and S2. No murmurs, rubs, or gallops appreciated Pulmonary: Normal respiratory effort. No rhonchi, rales, or wheezing appreciated Gastrointestinal: Soft, mild distention. Positive generalized tenderness. Positive bowel sounds all 4 quadrants. No guarding. Musculoskeletal: Moves all extremities. No calf tenderness. No edema appreciated. Central nervous system: AAOx3, no focal deficits Dermatologic: Skin warm and dry. Assessment and plan: Patient is a 63 year old male with past medical history significant for HIV, hepatitis C, liver cirrhosis, ascites, alcohol abuse, and CKD that presented to the emergency room with shortness of breath. 1. Shortness of breath. Likely multifactorial secondary to likely COPD, possible pneumonia, and ascites. BNP also elevated, rule out CHF. 2D echo ordered. Chest CT per radiologist showed evidence of COPD with hyperaeration of lungs, bulla along the right chest wall at the junction of the upper and lower lobe, minimal infiltrate at the left lung base and along the right lateral chest wall in the lower lobe; findings may represent chronic scarring; also minimal interstitial infiltrate or scar in the right middle lobe. ID recommendations appreciated. Continue Zithromax and Cefepime. Procalcitonin 0.17. Continue nebulizer treatments and solumedrol. Continue spironolactone. Lasix held for now secondary to renal function. IR consulted for possible paracentesis. Abdominal ultrasound per radiologist showed cirrhosis with severe ascites. 2. Liver cirrhosis. History of Hep C and alcohol abuse. Hep C antibody negative, viral load pending. Continue home propanolol. Continue home lasix and aldactone with home midodrine. 3. CKD. Unsure of baseline creatinine. BUN/Cr stable. Will consult nephrology. Lasix held. 4. Anemia. Likely secondary to chronic disease. H&H downtrending. Will monitor for now. 5. Diarrhea. C-diff negative. Stool culture pending. Continue to monitor. 6. History of HIV. HIV-1 RNA pending. HIV 1/2 ag/ab pending. ID recommendations appreciated. 7. Thrombocytopenia. Likely secondary to liver cirrhosis. Monitor for now. 8. GI/DVT prophylaxis. Protonix/SCDS 9. Patient is a full code. Palliative care consulted. Case was discussed in detail with the patient regarding current diagnosis, study results, and treatment plan. All questions answered.
[2018-08-23] MEDS: Albuterol-Ipratrop 3 mg / 0.5 (3 ml) UD IH SCH ×4 (01:00→19:30)
[2018-08-23] MEDS: Pantoprazole 40 mg EC Tab PO SCH ×2 (05:13→17:58)
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
[2018-08-23 07:05] LABS: HEMOGLOBIN 9.4 g/dL (14.0-18.0); LYMPH % 7.2 % (22.0-35.0); MEAN CELL VOLUME 85.6 fl (80.0-105.0); MEAN CORPUSCULAR HEMOGLOBIN 27.6 pg (25.0-35.0); MEAN CORPUSCULAR HGB CONC 32.3 g/dl (31.0-37.0); MONO # 0.8 (0.1-0.6); MONO % 5.6 % (1.0-6.0); RBC 3.4 10^6/uL (3.5-6.1); RED CELL DISTRIBUTION WIDTH 18.8 % (11.5-14.5)
[2018-08-23 07:29] LABS: ALB/GLOB RATIO 0.6 (1.1-1.8); ALBUMIN 2.5 g/dL (3.0-4.8); CALCIUM 8.2 mg/dL (8.4-10.5)
[2018-08-23] MEDS: MethylPREDNISolone 40 mg Vial IVP SCH (09:01)
[2018-08-23] MEDS: Azithromycin 500MG/NS 250ml 500 MG/250 ML BAG IVPB SCH (09:03)
[2018-08-23] MEDS: Cefepime IV 2 gm in NS 2 GM/100 ML BAG IVPB SCH (09:04)
--- NOTE | 2018-08-23 09:15 | CP.PCM.CON ---
<Devan Pratt - Last Filed: 08/23/18 16:43> History of Present Illness - History of Present Illness History of Present Illness: Devan Pratt Internal Medicine Resident- Consult Note on Behalf of Dr. Ray Subjective: CC: Shortness of breath HPI: Patient is a 63 year old male with a past medical history of HIV (unknown CD4 count or viral load), Hepatitis C, CKD who was admitted for evaluation and treatment of shortness of breath, abdominal pain, fever, chills and diarrhea. GI team was consulted management/recommendations on the aforementioned symptoms. Patient seen and examined at bedside. No acute events since admission. States abdominal pain is diffuse in nature and started approximately 5 days ago with no specific provoking event. The abdominal pain was associated with several nonbloody, loose bowel movements which has resolved. States his PO intake has decreased significantly. Also admits to SOB starting 1 week ago with associated nonproductive cough, subjective fever/chills, and generalized fatigue. Patient admits to visiting [facility] this month for the same complaints however left against medical advice. He follows with the [facility] hepatology clinic for cirrhosis treatment and received paracentesis every few weeks. Patient denies nausea, vomiting, constipation, bright red blood per rectum, black stools, change in stool caliber. Furthermore, denies chest pain and urinary symptoms. 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 Negative for: Lymphadenopathy, Tenderness, Thyromegaly - Respiratory Exam Respiratory Exam: Decreased Breath Sounds. absent: Rales, Rhonchi, Wheezes - Cardiovascular Exam Cardiovascular Exam: +S1, +S2. absent: Gallop, Rubs - GI/Abdominal Exam GI & Abdominal Exam: Distended, Soft, Tender to palpation, absent: Rebound, Ri gid - Extremities Exam Extremities exam: no clubbing, no cyanosis - Neurological Exam Neurological exam: Alert, CN II-XII Intact, Oriented x3 - Psychiatric Exam Psychiatric exam: Normal Affect, Normal Mood - Skin Skin Exam: Dry, Intact, Normal Color, Warm Studies Reviewed 08/21/2018 Abdominal Ultrasound- Cirrhosis with severe ascites 08/21/2018 CT Chest without contrast- There is evidence of COPD with hyperaeration of the lungs. There is a bulla along the right chest wall at the junction of the upper and lower lobe. There is a minimal infiltrate at the left lung base and along the right lateral chest wall in the lower lobe. These findings may represent chronic scarring. There is also a minimal interstitial infiltrate or scar in the right middle lobe. Assessment and Plan Patient is a 63 year old male with a past medical history of HIV (unknown CD4 count or viral load), Hepatitis C, CKD who was admitted for evaluation and treatment of shortness of breath, epigastric pain, fever, chills and diarrhea. Chronic liver cirrhosis in the setting of Hep C infection CKD Stage IV Anemia H/o HIV History of Hep C - Hepatitis C viral count ordered and pending - HIV RNA viral count ordered and pending - IR consulted for paracentesis-Peritoneal lab tests ordered - continue cefepime 2 grams IV daily and azithromcyin 500 IV daily - continue spironolactone 25mg PO BID, Propranolol 10mg BID, - recommend restarting home Lasix 40mg daily when creatinine stabilizes (while keeping adequate MAP >65) - abdominal ultrasound with duplex ordered and pending - administer albumin as ordered 25% 25gram/ml q2h - follows with [facility] hepatology Patient case discussed with and plan approved by attending physician, Dr. Ray. Past Patient History - Infectious Disease Hx of Infectious Diseases: None - Tetanus Immunizations Tetanus Immunization: Unknown - Past Social History Smoking Status: Former Smoker - CARDIAC Hx Cardiac Disorders: No (pt denies) Other/Comment: pt denies heart disease but is on midodrine 5 mg tid and propranolol 10 mg bid according to [facility] [phone] - PULMONARY Hx Respiratory Disorders: Yes Hx Pneumonia: Yes - NEUROLOGICAL Hx Neurological Disorder: No - HEENT Hx HEENT Problems: No - RENAL Hx Chronic Kidney Disease: Yes (pt stated "infections & abnormal bloodwork.") - ENDOCRINE/METABOLIC Hx Endocrine Disorders: No - HEMATOLOGICAL/ONCOLOGICAL Hx Hepatitis C: Yes (pt stated "from drinking") Hx Human Immunodeficiency Virus (HIV): Yes (dx 2 yrs ago pt stated) Other/Comment: liver failure, pt stated " I'm on the liver transplant list at [facility] 7 years." - INTEGUMENTARY Hx Dermatological Problems: No - MUSCULOSKELETAL/RHEUMATOLOGICAL Hx Falls: No - GASTROINTESTINAL Hx Gastrointestinal Disorders: Yes (weight loss/ poor appetite) Hx Liver Failure: Yes Other/Comment: presently c/o of diarrhea but is on lactulose prn for co nstipation as per [facility] - GENITOURINARY/GYNECOLOGICAL Hx Genitourinary Disorders: Yes Hx Incontinence: Yes Other/Comment: when asked if he was incontinent of urine and stool he said "yes" - PSYCHIATRIC Hx Substance Use: No - SURGICAL HISTORY Hx Surgeries: Yes Hx Appendectomy: Yes Hx Cholecystectomy: Yes - ANESTHESIA Hx Anesthesia Reactions: No Meds Allergies/Adverse Reactions: Allergies Allergy/AdvReac Type Severity Reaction Status Date / Time No Known Allergies Allergy Verified 08/21/18 07:32 - Medications Medications: Current Medications Albuterol/Ipratropium (Duoneb 3 Mg/0.5 Mg (3 Ml) Ud) 3 ml IH [id number] SUKUMAR Last Admin: 08/23/18 07:29 Dose: Not Given Albuterol/Ipratropium (Duoneb 3 Mg/0.5 Mg (3 Ml) Ud) 3 ml IH Q2H PRN PRN Reason: Shortness of Breath Guaifenesin (Robitussin) 100 mg PO Q4H PRN PRN Reason: Cough Cefepime HCl (Maxipime 2gm) 2 gm in 100 mls @ 100 mls/hr IVPB DAILY SUKUMAR; Protocol Stop: 08/27/18 10:01 Last Admin: 08/22/18 09:51 Dose: 100 mls/hr Azithromycin (Zithromax 500mg In Ns) 500 mg in 250 mls @ 167 mls/hr IVPB DAILY SUKUMAR; Protocol Last Admin: 08/22/18 09:51 Dose: 167 mls/hr Methylprednisolone (Solu-Medrol) 40 mg IVP DAILY [facility] Last Admin: 08/22/18 09:50 Dose: 40 mg Midodrine (Proamatine) 5 mg PO TID [facility] Last Admin: 08/22/18 17:35 Dose: 5 mg Pantoprazole Sodium (Protonix Ec Tab) 40 mg PO 0600,1600 [facility] Last Admin: 08/23/18 05:13 Dose: 40 mg Propranolol HCl (Inderal) 10 mg PO BID [facility] Last Admin: 08/22/18 18:00 Dose: 10 mg Spironolactone (Aldactone) 25 mg PO DAILY [facility] Last Admin: 08/22/18 09:50 Dose: 25 mg Results - Vital Signs Recent Vital Signs: Last Vital Signs Temp 97.7 F 08/22/18 22:13 Pulse 67 08/22/18 22:13 Resp 20 08/22/18 22:13 BP 111/73 08/22/18 22:13 Pulse Ox 98 08/22/18 22:13 - Labs Result Diagrams: 08/23/18 06:40 08/23/18 06:40 Labs: Laboratory Results - last 24 hr 08/22/18 08/22/18 08/22/18 09:00 09:00 09:00 WBC RBC Hgb Hct MCV MCH MCHC RDW Plt Count MPV Neut % (Auto) Lymph % (Auto) [place] % (Auto) Eos % (Auto) Baso % (Auto) Lymph # (Auto) [place] # (Auto) Eos # (Auto) Baso # (Auto) Absolute Neuts (auto) Sodium Potassium Chloride Carbon Dioxide Anion Gap BUN Creatinine Est GFR ( Amer) Est GFR (Non-Af Amer) Random Glucose Calcium Total Bilirubin AST ALT Alkaline Phosphatase Total Protein Albumin Globulin Albumin/Globulin Ratio Urine Color Yellow Urine Appearance Clear Urine pH 6.0 Ur Specific [place] 1.010 Urine Protein Trace H Urine Glucose (UA) Negative Urine Ketones Trace H Urine Blood Negative Urine Nitrate Negative Urine Bilirubin Negative Urine Urobilinogen 0.2 Ur Leukocyte Esterase Negative Urine RBC 0 - 2 Urine WBC 0 - 2 Ur Epithelial Cells None Urine Bacteria Few Ur Random Creatinine Ur Random Sodium Urine Opiates Screen Urine Methadone Screen Ur Barbiturates Screen Ur Phencyclidine Scrn Ur Amphetamines Screen U Benzodiazepines Scrn U Oth Cocaine Metabols U Cannabinoids Screen Ur L.pneumophila Ag Negative S. pneumoniae Antigen Negative 08/22/18 08/23/18 08/23/18 09:00 06:40 06:40 WBC 14.0 H D RBC 3.40 L Hgb 9.4 L Hct 29.1 L MCV 85.6 MCH 27.6 MCHC 32.3 RDW 18.8 H Plt Count 103 L MPV 9.0 Neut % (Auto) 87.2 H Lymph % (Auto) 7.2 L [place] % (Auto) 5.6 Eos % (Auto) 0.0 L Baso % (Auto) 0.0 Lymph # (Auto) 1.0 L [place] # (Auto) 0.8 H Eos # (Auto) 0.0 Baso # (Auto) 0.00 Absolute Neuts (auto) 12.17 H Sodium 140 Potassium 4.4 Chloride 117 H Carbon Dioxide 15 L Anion Gap 13 BUN 55 H Creatinine 3.4 H Est GFR ( Amer) 22 Est GFR (Non-Af Amer) 18 Random Glucose 109 Calcium 8.2 L Total Bilirubin 0.4 AST 51 ALT 27 Alkaline Phosphatase 162 H Total Protein 6.4 Albumin 2.5 L Globulin 3.9 Albumin/Globulin Ratio 0.6 L Urine Color Urine Appearance Urine pH Ur Specific [place] Urine Protein Urine Glucose (UA) Urine Ketones Urine Blood Urine Nitrate Urine Bilirubin Urine Urobilinogen Ur Leukocyte Esterase Urine RBC Urine WBC Ur Epithelial Cells Urine Bacteria Ur Random Creatinine 189 Ur Random Sodium < 5 Urine Opiates Screen Negative Urine Methadone Screen Negative Ur Barbiturates Screen Negative Ur Phencyclidine Scrn Negative Ur Amphetamines Screen Negative U Benzodiazepines Scrn Negative U Oth Cocaine Metabols Negative U Cannabinoids Screen Negative Ur L.pneumophila Ag S. pneumoniae Antigen <Michela Ray V - Last Filed: 08/23/18 23:55> Meds - Medications Medications: Current Medications Albuterol/Ipratropium (Duoneb 3 Mg/0.5 Mg (3 Ml) Ud) 3 ml IH [id number] [facility] Last Admin: 08/23/18 19:30 Dose: Not Given Albuterol/Ipratropium (Duoneb 3 Mg/0.5 Mg (3 Ml) Ud) 3 ml IH Q2H PRN PRN Reason: Shortness of Breath Guaifenesin (Robitussin) 100 mg PO Q4H PRN PRN Reason: Cough Cefepime HCl (Maxipime 2gm) 2 gm in 100 mls @ 100 mls/hr IVPB DAILY [facility]; Protocol Stop: 08/27/18 10:01 Last Admin: 08/23/18 09:04 Dose: 100 mls/hr Dextrose/Sodium Chloride (Dextrose 5%/0.9% Ns 1000 Ml) 1,000 mls @ 60 mls/hr IV .[id number] [facility] Methylprednisolone (Solu-Medrol) 40 mg IVP DAILY [facility] Last Admin: 08/23/18 09:01 Dose: 40 mg Midodrine (Proamatine) 5 mg PO TID [facility] Last Admin: 08/23/18 17:58 Dose: 5 mg Pantoprazole Sodium (Protonix Ec Tab) 40 mg PO 0600,1600 [facility] Last Admin: 08/23/18 17:58 Dose: 40 mg Propranolol HCl (Inderal) 10 mg PO BID [facility] Last Admin: 08/23/18 17:58 Dose: 10 mg Spironolactone (Aldactone) 25 mg PO DAILY [facility] Last Admin: 08/23/18 09:02 Dose: 25 mg Results - Vital Signs Recent Vital Signs: Last Vital Signs Temp 97.6 F 08/23/18 22:17 Pulse 66 08/23/18 22:17 Resp 18 08/23/18 22:17 BP 112/63 08/23/18 22:17 Pulse Ox 99 08/23/18 22:17 - Labs Result Diagrams: 08/23/18 06:40 08/23/18 06:40 Labs: Laboratory Results - last 24 hr 08/21/18 08/23/18 08/23/18 12:25 06:40 06:40 WBC 14.0 H D RBC 3.40 L Hgb 9.4 L Hct 29.1 L MCV 85.6 MCH 27.6 MCHC 32.3 RDW 18.8 H Plt Count 103 L MPV 9.0 Neut % (Auto) 87.2 H Lymph % (Auto) 7.2 L [place] % (Auto) 5.6 Eos % (Auto) 0.0 L Baso % (Auto) 0.0 Lymph # (Auto) 1.0 L [place] # (Auto) 0.8 H Eos # (Auto) 0.0 Baso # (Auto) 0.00 Absolute Neuts (auto) 12.17 H Sodium 140 Potassium 4.4 Chloride 117 H Carbon Dioxide 15 L Anion Gap 13 BUN 55 H Creatinine 3.4 H Est GFR ( Amer) 22 Est GFR (Non-Af Amer) 18 Random Glucose 109 Calcium 8.2 L Total Bilirubin 0.4 AST 51 ALT 27 Alkaline Phosphatase 162 H Total Protein 6.4 Albumin 2.5 L Globulin 3.9 Albumin/Globulin Ratio 0.6 L Fluid Source Fluid Appearance Fluid WBC Fluid RBC Fluid Tot Cell Count Fluid Mononuclear Cell Fl Polymorphonucl Cell Fluid Comment HIV 1&2 Ag/Ab, 4th Gen Nonreactive 08/23/18 16:49 WBC RBC Hgb Hct MCV MCH MCHC RDW Plt Count MPV Neut % (Auto) Lymph % (Auto) [place] % (Auto) Eos % (Auto) Baso % (Auto) Lymph # (Auto) [place] # (Auto) Eos # (Auto) Baso # (Auto) Absolute Neuts (auto) Sodium Potassium Chloride Carbon Dioxide Anion Gap BUN Creatinine Est GFR ( Amer) Est GFR (Non-Af Amer) Random Glucose Calcium Total Bilirubin AST ALT Alkaline Phosphatase Total Protein Albumin Globulin Albumin/Globulin Ratio Fluid Source Peritoneal/ascites Fluid Appearance Clear Fluid WBC 64.0 Fluid RBC 65.0 H Fluid Tot Cell Count 100 H Fluid Mononuclear Cell 82.8 H Fl Polymorphonucl Cell 17.2 H Fluid Comment Light yellow HIV 1&2 Ag/Ab, 4th Gen Attending/Attestation - Attestation I have personally seen and examined this patient.: Yes I have fully participated in the care of the patient.: Yes I have reviewed all pertinent clinical information: Yes Notes (Text): This 63-year-old patient with the HIV positive unknown CD4 count levels chronic kidney disease 08/23/18 23:46
[2018-08-23 16:51] LABS: BODY FLUID TYPE PERITONEAL/ASCITES
[2018-08-23 17:29] LABS: BF GROSS APPEARANCE CLEAR (CLEAR); BODY FLUID TOTAL COUNT 100 (0-0)
--- NOTE | 2018-08-23 17:34 | US ---
PROCEDURE: Ultrasound guided paracentesis. HISTORY: HIV. Chronic hepatitis C. cirrhosis. Recurrent ascites with abdominal pain and distension. Needs diagnostic and therapeutic paracentesis PHYSICIAN(S): Mehdi Galvin MD. TECHNIQUE: The relative risks and indications for the procedure were explained to the patient and informed written consent obtained. Sonography of the abdomen was performed in a supine position. This revealed a moderate amount of non-loculated ascites, greatest in the right lower quadrant. A puncture site was selected and the area was prepped and draped in the usual sterile fashion. 1% Xylocaine was used to anesthetize the skin and soft tissues. A 7 [place] paracentesis catheter was trocared into the right lower quadrantand 6400 cc of clear straw-colored fluid aspirated. The appropriate labs were sent IMPRESSION: Ultrasound-guided paracentesis in the right lower quadrant. 6400 cc of fluid were aspirated. Labs were sent
--- NOTE | 2018-08-23 19:09 | CARD ---
APPROVED REPORT Date of service: 08/23/2018 EXAM: Two-dimensional and M-mode echocardiogram with Doppler and color Doppler. INDICATION Dyspnea 2D DIMENSIONS Left Atrium (2D)3.1 (1.6-4.0cm)IVSd1.1 (0.7-1.1cm) LVDd4.1 (3.9-5.9cm)PWd0.9 (0.7-1.1cm) LVDs2.7 (2.5-4.0cm)FS (%) 35.0 % LVEF (%)64.8 (>50%) M-Mode DIMENSIONS Aortic Root2.90 (2.2-3.7cm)Aortic Cusp Exc.1.70 (1.5-2.0cm) Aortic Valve AoV Peak [id number]/Michelle Peak GR.3mmHg Mitral Valve E/A ratio0.0 TDI E/Lateral E'0.0E/Medial E'0.0 Tricuspid Valve TR Peak [id number] [id number] Peak Gr.14mmHg [id number] LEFT VENTRICLE The left ventricle is normal size. There is normal left ventricular wall thickness. The left ventricular function is normal.EF-65% There is normal LV segmental wall motion. Transmitral Doppler flow pattern is Grade III-reversible restrictive diastolic dysfunction. No left ventricle thrombus noted on this study. There is no ventricular septal defect visualized. There is no left ventricular aneurysm. There is no mass noted in the left ventricle. RIGHT VENTRICLE The right ventricle is normal size. There is normal right ventricular wall thickness. The right ventricular systolic function is normal. ATRIA The left atrium size is normal. The right atrium size is normal. The interatrial septum is intact with no evidence for an atrial septal defect. AORTIC VALVE The aortic valve is normal in structure. No aortic regurgitation is present. There is no aortic valvular stenosis. There is no aortic valvular vegetation. MITRAL VALVE The mitral valve is thickened but opens well. Mitral regurgitation is trace. There is no mitral valve stenosis. There is no evidence of mitral valve prolapse. TRICUSPID VALVE The tricuspid valve leaflets are thickened , but open well. There is trace tricuspid regurgitation.RVSP-24 mmof hg. There is no tricuspid valve stenosis. There is no tricuspid valve prolapse or vegetation. PULMONIC VALVE The pulmonic valve is not well visualized. GREAT VESSELS The aortic root is normal in size. The ascending aorta is normal in size. The pulmonary artery is normal. The IVC is normal in size and collapses >50% with inspiration. PERICARDIAL EFFUSION There is large left pleural effusion. There is a trace pericardial effusion. <Conclusion> Normal chamber Size. Ef-65% Mitral regurgitation is trace. There is trace tricuspid regurgitation.RVSP-24 mmof hg. The IVC is normal in size and collapses >50% with inspiration. There is a trace pericardial effusion. There is large left pleural effusion. no vegetation or thrombus noted.
--- NOTE | 2018-08-23 19:53 | CP.PCM.PN ---
<Himanshu Pratt - Last Filed: 08/23/18 21:23> Subjective - Date & Time of Evaluation Date of Evaluation: 08/23/18 Time of Evaluation: 09:00 - Subjective Subjective: Himanshu Pratt DO PGY1 - Medicine Progress Note Patient seen and evaluated at bedside this morning No acute events reported overnight; complaining of some SOB and abdominal discomfort 2/2 ascities. No complaints of fevers, chills, chest pain, n/v/d/c. Objective - Vital Signs/Intake and Output Vital Signs (last 24 hours): Temp Pulse Resp BP Pulse Ox 97.4 F L 65 18 130/72 99 08/23/18 14:00 08/23/18 14:00 08/23/18 14:00 08/23/18 17:58 08/23/18 14:00 - Medications Medications: Current Medications Albuterol/Ipratropium (Duoneb 3 Mg/0.5 Mg (3 Ml) Ud) 3 ml IH [id number] [facility] Last Admin: 08/23/18 19:30 Dose: Not Given Albuterol/Ipratropium (Duoneb 3 Mg/0.5 Mg (3 Ml) Ud) 3 ml IH Q2H PRN PRN Reason: Shortness of Breath Guaifenesin (Robitussin) 100 mg PO Q4H PRN PRN Reason: Cough Cefepime HCl (Maxipime 2gm) 2 gm in 100 mls @ 100 mls/hr IVPB DAILY [facility]; Protocol Stop: 08/27/18 10:01 Last Admin: 08/23/18 09:04 Dose: 100 mls/hr Albumin Human (Albumin Human 25% (25 Gm/100 Ml)) 100 mls @ 1 mls/min IVPB Q2 [facility] Stop: 08/23/18 21:39 Last Admin: 08/23/18 18:27 Dose: 1 mls/min Methylprednisolone (Solu-Medrol) 40 mg IVP DAILY [facility] Last Admin: 08/23/18 09:01 Dose: 40 mg Midodrine (Proamatine) 5 mg PO TID [facility] Last Admin: 08/23/18 17:58 Dose: 5 mg Pantoprazole Sodium (Protonix Ec Tab) 40 mg PO 0600,1600 [facility] Last Admin: 08/23/18 17:58 Dose: 40 mg Propranolol HCl (Inderal) 10 mg PO BID [facility] Last Admin: 08/23/18 17:58 Dose: 10 mg Spironolactone (Aldactone) 25 mg PO DAILY [facility] Last Admin: 08/23/18 09:02 Dose: 25 mg - Labs Labs: 08/23/18 06:40 08/23/18 06:40 PT 11.8 SECONDS (9.4-12.5) 08/21/18 08:20 INR 1.04 08/21/18 08:20 APTT 33.7 Seconds (26.9-38.3) 08/21/18 08:20 - Constitutional Appears: Well, Non-toxic, No Acute Distress - Head Exam Head Exam: ATRAUMATIC, NORMOCEPHALIC - Eye Exam Eye Exam: EOMI, PERRL - Respiratory Exam Additional comments: RLL w/ diminished breath sounds LLL w/ crackling - Cardiovascular Exam Cardiovascular Exam: RRR. absent: Murmur - GI/Abdominal Exam GI & Abdominal Exam: Distended. absent: Tenderness Additional comments: Dull to percussion NO caput medusa - Extremities Exam Extremities Exam: Normal Capillary Refill. absent: Pedal Edema - Neurological Exam Neurological Exam: Alert, Awake, Oriented x3 - Psychiatric Exam Psychiatric exam: Normal Affect, Normal Mood - Skin Skin Exam: Dry, Intact, Warm Assessment and Plan - Assessment and Plan (Free Text) Assessment: 63M w/ PMH Questionable CKD, Liver Cirrhosis (etiology unknown), COPD presented to [facility] on 08/21 w/ complaints of SOB noted to have ascites on presentation. Admitted for further management of SOB and ascites in setting of cirrhosis Plan: SOB - 2/2 CHF vs COPD Exacerbation vs PNA (less likely) Afebrile w/o leukocytosis on initial presentation CT Chest - COPD w/ hyperaration of the lungs; minimal infiltrate at in Left lung base and along R lateral chest wall in lower lobe - interstitial infiltrate or scar in R middle lobe Serology negative for strep pneumo, legionella Procal within normal limits BNP elevated ECHO - LVEF 65% w/ Grade III-reversible diastolic dysfunction C/w Solumedrol 40 Q12 - Started 08/22 C/w Cefepime C/w Duoneb Q6H SUKUMAR/ Q2 PRN C/w Robitussin ID Following, Appreciate Reccs Ascites in setting of Cirrhosis S/p Paracentesis w/ Dr. Galvin 08/23 - 6400cc Yellow Fluid F/u Fluid Studies Monitor BP postparacentesis C/w Aldactone, Propranolol, Midodrine GI Following Appreciate Rec Cirrhosis - Etiology Unknown Hep C Negative / HIV Negative Patient follows [email or web address] hepatology Follow up Abd US w/ duplex GI Following, Appreciate Rec Elevated Cr - CKD vs EARL BUN/Cr - 55/3.4 worsening No prior visits to [facility]; baseline unknown ; Will follow up w/ PMD regarding baseline studies Hold home lasix Nephrology Consulted, Appreciate reccs GI/DVT Prophylaxis -Protonix/Heparin Patient was seen, evaluated, discussed w/ attending Dr. Rashida Pratt DO PGY1 - Internal Medicine Manager [employer] <Rashida Pratt R - Last Filed: 08/24/18 06:49> Objective - Vital Signs/Intake and Output Vital Signs (last 24 hours): Temp Pulse Resp BP Pulse Ox 97.6 F 66 18 112/63 99 08/23/18 22:17 08/23/18 22:17 08/23/18 22:17 08/23/18 22:17 08/23/18 22:17 - Medications Medications: Current Medications Albuterol/Ipratropium (Duoneb 3 Mg/0.5 Mg (3 Ml) Ud) 3 ml IH [id number] [facility] Last Admin: 08/24/18 02:14 Dose: Not Given Albuterol/Ipratropium (Duoneb 3 Mg/0.5 Mg (3 Ml) Ud) 3 ml IH Q2H PRN PRN Reason: Shortness of Breath Guaifenesin (Robitussin) 100 mg PO Q4H PRN PRN Reason: Cough Cefepime HCl (Maxipime 2gm) 2 gm in 100 mls @ 100 mls/hr IVPB DAILY [facility]; Protocol Stop: 08/27/18 10:01 Last Admin: 08/23/18 09:04 Dose: 100 mls/hr Dextrose/Sodium Chloride (Dextrose 5%/0.9% Ns 1000 Ml) 1,000 mls @ 60 mls/hr IV .[id number] [facility] Last Admin: 08/24/18 05:56 Dose: 60 mls/hr Methylprednisolone (Solu-Medrol) 40 mg IVP DAILY [facility] Last Admin: 08/23/18 09:01 Dose: 40 mg Midodrine (Proamatine) 5 mg PO TID [facility] Last Admin: 08/23/18 17:58 Dose: 5 mg Pantoprazole Sodium (Protonix Ec Tab) 40 mg PO 0600,1600 [facility] Last Admin: 08/23/18 17:58 Dose: 40 mg Propranolol HCl (Inderal) 10 mg PO BID [facility] Last Admin: 08/23/18 17:58 Dose: 10 mg Spironolactone (Aldactone) 25 mg PO DAILY [facility] Last Admin: 08/23/18 09:02 Dose: 25 mg - Labs Labs: 08/23/18 06:40 08/23/18 06:40 PT 11.8 SECONDS (9.4-12.5) 08/21/18 08:20 INR 1.04 08/21/18 08:20 APTT 33.7 Seconds (26.9-38.3) 08/21/18 08:20 Attending/Attestation - Attestation I have personally seen and examined this patient.: Yes I have fully participated in the care of the patient.: Yes I have reviewed all pertinent clinical information, including history, physical exam and plan: Yes Notes (Text): Patient seen and examined by me with resident at approximately 10:10AM on 08/23/18. Case including HPI, physical exam, and assessment and plan discussed with resident. Agree with above with following additions/corrections. Patient is a 63 year old male with past medical history significant for HIV, hepatitis C, liver cirrhosis, ascites, alcohol abuse, and CKD that presented to the emergency room with shortness of breath. Patient states that he is feeling short of breath. States he needs the "fluid removed from my stomach." Patient denies chest pain or palpitations. No nausea or vomiting. No headaches or dizziness. No fevers or chills. No dysuria. Physical exam: General: Awake and alert lying in bed in no acute distress, cachectic appearing HEENT: Normocephalic, atraumatic. Extraocular muscles intact. Pupils equal and reactive, no scleral icterus. Oropharynx is pink and moist. Neck is supple. Cardiovascular: Normal rhythm. Normal S1 and S2. No murmurs, rubs, or gallops appreciated Pulmonary: Normal respiratory effort. No rhonchi, rales, or wheezing appreciated Gastrointestinal: Soft, positive distention. Positive generalized tenderness. Positive bowel sounds all 4 quadrants. No guarding. Musculoskeletal: Moves all extremities. No calf tenderness. No edema appreciated. Central nervous system: AAOx3, no focal deficits Dermatologic: Skin warm and dry. Assessment and plan: Patient is a 63 year old male with past medical history significant for HIV, hepatitis C, liver cirrhosis, ascites, alcohol abuse, and CKD that presented to the emergency room with shortness of breath. 1. Shortness of breath. Likely multifactorial secondary to likely COPD, possible pneumonia, and severe ascites. BNP also elevated, rule out CHF. 2D echo results pending. ID recommendations appreciated. Continue Zithromax and Cefepime. Procalcitonin 0.17. Continue nebulizer treatments and solumedrol. Continue spironolactone. Lasix held for now secondary to renal function. Patient for paracentesis today with IR. Chest CT per radiologist showed evidence of COPD with hyperaeration of lungs, bulla along the right chest wall at the junction of the upper and lower lobe, minimal infiltrate at the left lung base and along the right lateral chest wall in the lower lobe; findings may represent chronic scarring; also minimal interstitial infiltrate or scar in the right middle lobe. Abdominal ultrasound per radiologist showed cirrhosis with severe ascites. 2. Liver cirrhosis. History of Hep C and alcohol abuse. Hep C antibody negative, viral load pending. Continue propanolol. Continue aldactone. Lasix held secondary to renal function. 3. CKD. Unsure of baseline creatinine. BUN/Cr stable. Nephrology recommendations pending. Lasix held. 4. Anemia. Likely secondary to chronic disease. H&H stable. Continue to monitor for now. 5. Diarrhea. C-diff negative. Ova and parasite negative. Continue to monitor. 6. History of HIV. HIV-1 RNA pending. HIV 1/2 ag/ab negative. ID recommendations appreciated. 7. Thrombocytopenia. Slightly downtrended. Likely secondary to liver cirrhosis. Continue to monitor for now. 8. GI/DVT prophylaxis. Protonix/SCDS 9. Patient is a full code. Palliative care consulted. Case was discussed in detail with the patient regarding current diagnosis, study results, and treatment plan. All questions answered.
--- NOTE | 2018-08-23 20:17 | PN ---
DATE: 08/23/2018 SUBJECTIVE: The patient is in bed, in no acute distress, nontoxic. PHYSICAL EXAMINATION: VITAL SIGNS: Temperature is 98, blood pressure is 130/70. HEENT: Unremarkable. NECK: Supple. LUNGS: Decreased breath sounds. HEART: Normal S1, S2. ABDOMEN: Soft. LABORATORY DATA: Reveals the patient has a white count of 14,000, hemoglobin of 9, platelets of 103. Coagulation is noted. BUN of 55, creatinine of 3.4. Alk phos is 162. Urinalysis is noted. Microbiology reveals the blood cultures are negative. Stool is negative for ova and parasites and stool cultures are also no growth. Stool for C. diff is also negative. Review of orders reveals the patient to be on no HIV medications. The patient is on cefepime and was given a dose of vancomycin. The patient is also on Zithromax. ASSESSMENT AND PLAN: This is a 63-year-old male with positive human immunodeficiency virus, positive hepatitis C, kidney disease, coronary artery disease with cirrhosis, history of cholecystectomy and appendectomy, jaw repair, presenting with weakness, cough, shortness of breath. Healthcare-associated pneumonia, recently hospitalized with acute kidney injury, positive human immunodeficiency virus, acute congestive heart failure and elevated BNP, on cefepime and azithromycin. Cultures are noted. The patient is also on Solu-Medrol, was given a dose of vancomycin. The patient's CAT scan of the chest is noted which has shown evidence of chronic obstructive pulmonary disease, bullous lesions, minimal infiltrate. Dr. Devan Pratt's consultation is reviewed. No assessment on the consultation so far. Dr. Manzo's history and physical examination is reviewed. The patient's urine Legionella antigen is negative, human immunodeficiency virus fourth generation is negative, strep pneumonia is negative, hepatitis C antibody is negative which makes his history completely relevant and incorrect. We will discontinue the Zithromax. Paracentesis with Dr. Mehdi Galvin is ordered. We will check on the human immunodeficiency virus PCR. Check on the paracentesis. Peritoneal fluid white blood cells are pending home. We will follow with you. Procalcitonin is also normal. Tommy Romeo MD
[2018-08-23] MEDS ORDERED: Dextrose 5%/0.9% NS 1,000 ML IV SCH (20:30)
--- NOTE | 2018-08-24 01:11 | CON ---
DATE OF CONSULTATION: 08/23/2018 REASON FOR CONSULTATION: Shortness of breath, renal insufficiency, acute kidney injury superimposed on chronic kidney disease?. HISTORY OF PRESENTING ILLNESS: A 63-year-old male, previously unknown to me. The patient was admitted on 08/21 with complaints of shortness of breath., dyspnea on exertion. The patient was found to have an elevated creatinine of 3.2. On questioning, the patient does report that he has knowledge that he has chronic kidney disease, but does not know how bad. Does not know what his baseline creatinine is. He thinks he might have seen a hide splitter in [facility]. He reports that he is on the liver transplant list. As per the history of presenting illness from the admission, he gave a history of fever, chills, fatigue, lethargy. Also gave a history of diarrhea with loose, nonbloody bowel movements. PAST MEDICAL AND SURGICAL HISTORY: Obtained from the chart, history of HIV, hepatitis C, alcoholic cirrhosis, ascites, intermittent paracentesis, chronic kidney disease, cholecystectomy, appendectomy. FAMILY HISTORY: Diabetes in mother. SOCIAL HISTORY: Ex-smoker, smoked [id number] packs per day for 30 years, history of alcohol use, last drink 2 years ago. REVIEW OF SYSTEMS: Twelve systems are reviewed, pertinent positives as mentioned in the history of presenting illness, rest unremarkable. ALLERGIES: NO KNOWN DRUG ALLERGIES. MEDICATIONS AT HOME: Had been midodrine 5 t.i.d., propranolol 10 b.i.d., Spironolactone 25 b.i.d., Lasix 40 daily, Protonix 40 b.i.d., lactulose. REVIEW OF SYSTEMS: All systems are reviewed, pertinent positives as mentioned in the history of presenting illness, rest unremarkable. PHYSICAL EXAMINATION: GENERAL: Cachectic, elderly male, lying in bed with bitemporal wasting. VITAL SIGNS: Blood pressure 105/63, heart rate 65, respiratory rate 18, temperature 97.4. HEENT: Normocephalic, atraumatic, positive pallor. NECK: Supple, no JVD. LUNGS: Bilateral equal entry, bilateral equal expansion, decrease breath sounds at bases. CARDIAC: S1, S2, regular rate and rhythm, no murmur, no rub. ABDOMEN: Distended, soft, positive ascites, bowel sounds present. EXTREMITIES: No lower extremity edema. INTAKE AND OUTPUT: 480/not charted. LABORATORY DATA: WBC 14, hemoglobin 9.4, hematocrit 29, platelets 103. Sodium 140, potassium 4.4, chloride 117, CO2 of 15. Anion gap 13. BUN 55, creatinine 3.4, glucose 109, calcium 8.2, albumin 2.5, corrected calcium 9.2, globulin 3.9. Urinalysis, yellow, clear, pH 6, specific gravity 1010, protein trace, ketones trace, nitrite negative, leukocyte esterase negative, urine sodium less than 5, urine creatinine 189. Abdominal ultrasound showing cirrhosis with severe ascites, right kidney 9.1 cm, left kidney 8 cm with no echogenicity. CT of the chest, severe COPD with hyperaeration of lungs, minimal infiltrate at lung left base and along right lateral chest wall. Echocardiogram, trace mitral regurg, trace tricuspid regurg, IVC normal size, trace pericardial effusion, large left pleural effusion, normal chamber size, ejection fraction 65%. CURRENT MEDICATIONS: Albumin 25 g x2 doses today, Aldactone 25 daily, DuoNeb, Inderal, cefepime 2 g daily, ProAmatine 5 t.i.d., Protonix, Solu-Medrol, potassium phosphate 15 millimoles given yesterday, and Zithromax. ASSESSMENT: 1. Acute kidney injury superimposed on chronic kidney disease., unclear what his baseline is, suspect he has prerenal azotemia superimposed on underlying chronic disease. 2. Cirrhosis of the liver, ascites, history of hepatitis C, history of alcoholic cirrhosis. 3. History of human immunodeficiency virus. 4. Sepsis, leukocytosis, pneumonia versus spontaneous bacterial peritonitis. PLAN: 1. Dextrose normal saline at 60 cc/hour. 2. Monitor intake and output closely. 3. Get outpatient blood work from [facility]? 4. Agree with empiric antibiotics. 5. Monitor daily labs. Natalia Gonzalez MD
[2018-08-24] MEDS: Albuterol-Ipratrop 3 mg / 0.5 (3 ml) UD IH SCH ×5 (02:14→20:24)
[2018-08-24 07:24] LABS: HEMOGLOBIN 9.8 g/dL (14.0-18.0); LYMPH % 8.7 % (22.0-35.0); MEAN CELL VOLUME 85.8 fl (80.0-105.0); MEAN CORPUSCULAR HEMOGLOBIN 27.8 pg (25.0-35.0); MEAN CORPUSCULAR HGB CONC 32.5 g/dl (31.0-37.0); MEAN PLATELET VOLUME 9.2 fl (7.0-11.0); MONO # 0.6 (0.1-0.6); MONO % 5.5 % (1.0-6.0); RBC 3.52 10^6/uL (3.5-6.1); WHITE BLOOD COUNT 11.6 10^3/uL (4.5-11.0)
[2018-08-24 08:00] LABS: ALB/GLOB RATIO 0.7 (1.1-1.8); ALBUMIN 2.8 g/dL (3.0-4.8); CALCIUM 8.4 mg/dL (8.4-10.5)
[2018-08-24] MEDS: MethylPREDNISolone 40 mg Vial IVP SCH (09:11)
[2018-08-24] MEDS: Cefepime IV 2 gm in NS 2 GM/100 ML BAG IVPB SCH (09:12)
--- NOTE | 2018-08-24 09:45 | US ---
PROCEDURE: Portal vein duplex ultrasound. CLINICAL HISTORY: Cirrhosis. Deteriorating liver function. Evaluate for portal vein thrombosis. PHYSICIAN(S): Mehdi Galvin M.D. FINDINGS: The liver is heterogeneous in appearance with a nodular contour, consistent with cirrhosis. No obvious mass is appreciated on these limited images. The extrahepatic portal vein is small in caliber but patent with hepatopetal flow. The hepatic artery is prominent. The spleen is enlarged. There is ascites in the upper abdomen. IMPRESSION: 1. Patent portal vein with hepatopetal flow.
[2018-08-24] MEDS ORDERED: Sodium Bicarbonate 8.4% 75 MEQ in Dextrose 5% In Water 1,000 ML IV SCH (13:30)
--- NOTE | 2018-08-24 14:29 | CP.PCM.PN ---
<TerenceDevan - Last Filed: 08/24/18 14:17> Subjective - Date & Time of Evaluation Date of Evaluation: 08/24/18 Time of Evaluation: 10:30 - Subjective Subjective: Devan Pratt Internal Medicine Resident- Consult Note on Behalf of Dr. Ray Subjective: Patient seen and examined at bedside. No acute events overnight. States abdominal pain has improved relative to baseline s/p paracentesis. Patient den ies nausea, vomiting, constipation, bright red blood per rectum, black stools, change in stool caliber. Furthermore, denies chest pain and urinary symptoms. 12 point ROS negative except as indicated in the HPI Physical Examination: - Constitutional Appears: Cachectic, Chronically Ill - Head Exam Head Exam: ATRAUMATIC, NORMOCEPHALIC - Eye Exam Eye Exam: EOMI - ENT Exam ENT Exam: Mucous Membranes Moist - Neck Exam Neck exam: Positive for: Normal Inspection. Negative for: Lymphadenopathy, Tenderness, Thyromegaly - Respiratory Exam Respiratory Exam: Decreased Breath Sounds. absent: Rales, Rhonchi, Wheezes - Cardiovascular Exam Cardiovascular Exam: +S1, +S2. absent: Gallop, Rubs - GI/Abdominal Exam GI & Abdominal Exam: Soft, Tender to palpation, absent: Rebound, Rigid - Extremities Exam Extremities exam: no clubbing, no cyanosis - Neurological Exam Neurological exam: Alert, CN II-XII Intact, Oriented x3 - Psychiatric Exam Psychiatric exam: Normal Affect, Normal Mood - Skin Skin Exam: Dry, Intact, Normal Color, Warm Studies Reviewed 08/21/2018 Abdominal Ultrasound- Cirrhosis with severe ascites 08/21/2018 CT Chest without contrast- There is evidence of COPD with hyperaeration of the lungs. There is a bulla along the right chest wall at the junction of the upper and lower lobe. There is a minimal infiltrate at the left lung base and along the right lateral chest wall in the lower lobe. These findings may represent chronic scarring. There is also a minimal interstitial infiltrate or scar in the right middle lobe. 08/24/2018 Abdominal ultrasound- Patent portal vein with hepatopetal flow Assessment and Plan Patient is a 63 year old male with a past medical history of HIV (unknown CD4 count or viral load), Hepatitis C, CKD who was admitted for evaluation and treatment of shortness of breath, epigastric pain, fever, chills and diarrhea. Chronic liver cirrhosis in the setting of suspected ETOH abuse- s/p paracentesis 6400cc yellow fluid removed CKD Stage IV Anemia Endorsed by patient to have h/o HIV Endorsed by patient to have History of Hep C - Hepatitis C viral count reviewed- negative - HIV RNA viral count reviewed- negative - continue cefepime 2 grams IV daily and azithromcyin 500 IV daily - continue spironolactone 25mg PO BID- if discharged on this medication please attain BMP within 1 week from discharge for monitoring of potassium - continue Propranolol 10mg BID - recommend restarting home Lasix 40mg daily when creatinine stabilizes (while keeping adequate MAP >65) - abdominal ultrasound with duplex- reviewed- patent portal vein - administer albumin as ordered 25% 25 gram/100ml q2h x 2 - follows with [facility] hepatology- recommend following up with specialists upon discharge from hospital Patient case discussed with and plan approved by attending physician, Dr. Ray. Objective - Vital Signs/Intake and Output Vital Signs (last 24 hours): Temp Pulse Resp BP Pulse Ox 97.8 F 67 18 102/46 L 99 08/24/18 06:00 08/24/18 06:00 08/24/18 06:00 08/24/18 06:00 08/24/18 06:00 - Medications Medications: Current Medications Albuterol/Ipratropium (Duoneb 3 Mg/0.5 Mg (3 Ml) Ud) 3 ml IH [id number] [facility] Last Admin: 08/24/18 13:31 Dose: Not Given Albuterol/Ipratropium (Duoneb 3 Mg/0.5 Mg (3 Ml) Ud) 3 ml IH Q2H PRN PRN Reason: Shortness of Breath Guaifenesin (Robitussin) 100 mg PO Q4H PRN PRN Reason: Cough Cefepime HCl (Maxipime 2gm) 2 gm in 100 mls @ 100 mls/hr IVPB DAILY SUKUMAR; Protocol Stop: 08/27/18 10:01 Last Admin: 08/24/18 09:12 Dose: 100 mls/hr Albumin Human (Albumin Human 25% (25 Gm/100 Ml)) 100 mls @ 1 mls/min IVPB Q2H SUKUMAR Stop: 08/24/18 15:24 Last Admin: 08/24/18 12:47 Dose: 1 mls/min Sodium Bicarbonate 75 meq/ (Dextrose) 1,075 mls @ 60 mls/hr IV .[id number] [facility] Magnesium Oxide (Mag-Ox) 400 mg PO BID [facility] Methylprednisolone (Solu-Medrol) 40 mg IVP DAILY [facility] Last Admin: 08/24/18 09:11 Dose: 40 mg Midodrine (Proamatine) 5 mg PO TID [facility] Last Admin: 08/24/18 13:16 Dose: 5 mg Pantoprazole Sodium (Protonix Ec Tab) 40 mg PO 0600,1600 [facility] Last Admin: 08/23/18 17:58 Dose: 40 mg Potassium Phos/Sodium Phos (Neutra-Phos) 1 pkt PO DAILY [facility] Propranolol HCl (Inderal) 10 mg PO BID [facility] Last Admin: 08/24/18 09:11 Dose: 10 mg Spironolactone (Aldactone) 25 mg PO DAILY [facility] Last Admin: 08/24/18 09:11 Dose: 25 mg - Labs Labs: 08/24/18 07:00 08/24/18 07:00 PT 11.8 SECONDS (9.4-12.5) 08/21/18 08:20 INR 1.04 08/21/18 08:20 APTT 33.7 Seconds (26.9-38.3) 08/21/18 08:20 <Michela Ray V - Last Filed: 08/24/18 19:43> Objective - Vital Signs/Intake and Output Vital Signs (last 24 hours): Temp Pulse Resp BP Pulse Ox 97.4 F L 66 18 116/71 100 08/24/18 14:00 08/24/18 14:00 08/24/18 14:00 08/24/18 14:00 08/24/18 14:00 - Medications Medications: Current Medications Albuterol/Ipratropium (Duoneb 3 Mg/0.5 Mg (3 Ml) Ud) 3 ml IH [id number] [facility] Last Admin: 08/24/18 13:31 Dose: Not Given Albuterol/Ipratropium (Duoneb 3 Mg/0.5 Mg (3 Ml) Ud) 3 ml IH Q2H PRN PRN Reason: Shortness of Breath Guaifenesin (Robitussin) 100 mg PO Q4H PRN PRN Reason: Cough Sodium Bicarbonate 75 meq/ (Dextrose) 1,075 mls @ 60 mls/hr IV .[id number] [facility] Last Admin: 08/24/18 16:35 Dose: 60 mls/hr Magnesium Oxide (Mag-Ox) 400 mg PO BID [facility] Last Admin: 08/24/18 17:37 Dose: 400 mg Methylprednisolone (Solu-Medrol) 40 mg IVP DAILY [facility] Last Admin: 08/24/18 09:11 Dose: 40 mg Midodrine (Proamatine) 5 mg PO TID [facility] Last Admin: 08/24/18 17:36 Dose: 5 mg Pantoprazole Sodium (Protonix Ec Tab) 40 mg PO 0600,1600 [facility] Last Admin: 08/24/18 17:36 Dose: 40 mg Potassium Phos/Sodium Phos (Neutra-Phos) 1 pkt PO DAILY [facility] Last Admin: 08/24/18 17:37 Dose: 1 pkt Propranolol HCl (Inderal) 10 mg PO BID [facility] Last Admin: 08/24/18 17:36 Dose: 10 mg Spironolactone (Aldactone) 25 mg PO DAILY [facility] Last Admin: 08/24/18 09:11 Dose: 25 mg - Labs Labs: 08/24/18 07:00 08/24/18 07:00 PT 11.8 SECONDS (9.4-12.5) 08/21/18 08:20 INR 1.04 08/21/18 08:20 APTT 33.7 Seconds (26.9-38.3) 08/21/18 08:20 Attending/Attestation - Attestation I have personally seen and examined this patient.: Yes I have fully participated in the care of the patient.: Yes I have reviewed all pertinent clinical information, including history, physical exam and plan: Yes Notes (Text): This is an addendum to the GI progress report dictated by the resident. The patient was seen and evaluated along with the resident earlier. Discussed with the Dr. Romeo. HCV and HIV were negative. Cirrhosis probably secondary to the EtOH. Patient is being followed at the [facility] liver unit Chronic kidney disease Refractory ascites status post large volume paracentesis Low dose of diuretics with close monitoring of electrolytes. Importance of outpatient follow-up and monitoring blood tests explained to the patient Advised the patient follow-up at the request of liver unit and also with his primary physician 08/24/18 19:41
--- NOTE | 2018-08-24 15:02 | PCM.PCON ---
History of Present Illness - History of Present Illness History of Present Illness: Palliative consult requested by Dr Stormy Pratt Reason: advance care planning This is a 63 year old male with history of CKD who was admitted for evaluation and treatment of shortness of breath, abdominal pain, fever, chills and diarrhe a. States abdominal pain is diffuse in nature and started approximately 5 days prior to admission. he has poor apetite and SOB with nonproductive cough, subjective fever/chills, and generalized fatigue. He follows with the [facility] hepatology clinic for cirrhosis treatment and received paracentesis every few weeks. Patient denies nausea, vomiting, constipation, bright red blood per rectum, black stools, change in stool caliber. Furthermore, denies chest pain and urinary symptoms. Abdominal Ultrasound: Cirrhosis with severe ascites. CT Chest without contrast: There is evidence of COPD with hyperaeration of the lungs. There is a bulla along the right chest wall at the junction of the upper and lower lobe. There is a minimal infiltrate at the left lung base and along the right lateral chest wall in the lower lobe. These findings may represent chronic scarring. There is also a minimal interstitial infiltrate or scar in the right middle lobe. Abdominal ultrasound: Patent portal vein with hepatopetal flow Labs: Wbc 11.6, Hgb 9.8,Plt92, Na 141, K 4.7, Bun 62, Major General 3.2, AST 51,ALT 29,Alk Phos 161, BNP 1790, album in2.5. Ibrahim cultures negative PMHx:Cirhosiss, CKD PSHx: cholecystectomy, appendectomy, jaw repair s/p work injury Social History: Former smoker, denies alcohol and illicit drug use. States he lives with spouse. 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 Family History: Mother> Diabetes. Advance Care Planning: The patient does not have an Advanced Directive. Review of Systems: As per HPI, 12 point review otherwise negative. Physical Exam - Constitutional Appears: Cachectic, Chronically Ill Additional comments: Vital signs T 97.0, P 65, BP 100/60, R 14 - Head Exam Head Exam: NORMOCEPHALIC - Eye Exam Eye Exam: Normal appearance, PERRL - ENT Exam ENT Exam: Mucous Membranes Moist - Neck Exam Neck exam: Positive for: Normal Inspection - Respiratory Exam Respiratory Exam: NORMAL BREATHING PATTERN - Cardiovascular Exam Cardiovascular Exam: REGULAR RHYTHM, +S1, +S2 - GI/Abdominal Exam GI & Abdominal Exam: Distended, Normal Bowel Sounds - Extremities Exam Extremities exam: Positive for: pedal edema, pedal pulses present - Neurological Exam Neurological exam: Alert, Oriented x3 - Skin Skin Exam: Dry, Pallor, Warm - Additional Findings Additional findings: Palliative performance scale rating 50% Palliative Care Assessment - Modified MRC Dyspnea Scale Modified MRC Dyspnea Scale: Has to stop for breath when walking at own pace Grade: 3 - Pain Description Intensity of pain at present: 2 Pain Behavior: Withdrawal from Touch, Restlessness Aggravating Factors: Changing Position, Exercise/Activity Alleviating Factors/Management Techniques: Medication, Position Change - Guicho Scale Sensory Perception: Slightly Limited Moisture: Occasionally Moist Activity: Bedfast Mobility: Slightly Impaired Nutrition: Probably Inadequate Friction & Shear: Potential Problem Total Score - Skin Risk Assessment: 14 Palliative Care - Goals Treatment Goal(s): Alleviate symptoms, Improve ADLs, Improve quality of life End of life care discussed: Yes - Plan Interdisciplinary involved: data center manager, Physician Assessment & Plan - Assessment and Plan (Free Text) Assessment: 63 year old male with cirrhosis who is admitted with shortness of breath, ascites, abdominal pain The patient is seen lying in bed in position. He denies pain, says he feels cold. He is aware that he has liver disease. Unable to give good history of the trajectory of this illness. Goals of care and advance care planning discussed.The patient does not have an advanced directive. Resuscitation status discussed. The patient does not want to make decision regarding this matter. Patient asking that I speak with his and son. The patient does not remember their phone numbers. He is unsure if they are coming to visit him. Time spent with patient in goals of care and advance care planning discussion, 30 minutes Plan: Goals of care and advance care palnning Asictes: s/p paracentesis, continue spironolactone,Lasix GI flowing: Hepatitis C viral count reviewed- negative, HIV RNA negative, additional work up pending Continue cefepime and azithromcyin Continue Inderal F/u with [facility] hepatology upon discharge
--- NOTE | 2018-08-24 17:34 | CP.PCM.PN ---
<Himanshu Pratt - Last Filed: 08/24/18 17:10> Subjective - Date & Time of Evaluation Date of Evaluation: 08/24/18 Time of Evaluation: 09:00 - Subjective Subjective: Himanshu Pratt DO PGY1 - Internal Medicine [employer]man - Hospitalist Progress Note Patient was seen and examined at bedside No acute event reported overnight; tolerated paracentesis well Reports improvement in abdominal discomfort Complains of some shortness of breath ; no chest pain ; n/v/d/c, urinary discomfort Objective - Vital Signs/Intake and Output Vital Signs (last 24 hours): Temp Pulse Resp BP Pulse Ox 97.4 F L 66 18 116/71 100 08/24/18 14:00 08/24/18 14:00 08/24/18 14:00 08/24/18 14:00 08/24/18 14:00 - Medications Medications: Current Medications Albuterol/Ipratropium (Duoneb 3 Mg/0.5 Mg (3 Ml) Ud) 3 ml IH [id number] [facility] Last Admin: 08/24/18 13:31 Dose: Not Given Albuterol/Ipratropium (Duoneb 3 Mg/0.5 Mg (3 Ml) Ud) 3 ml IH Q2H PRN PRN Reason: Shortness of Breath Guaifenesin (Robitussin) 100 mg PO Q4H PRN PRN Reason: Cough Cefepime HCl (Maxipime 2gm) 2 gm in 100 mls @ 100 mls/hr IVPB DAILY [facility]; Protocol Stop: 08/27/18 10:01 Last Admin: 08/24/18 09:12 Dose: 100 mls/hr Sodium Bicarbonate 75 meq/ (Dextrose) 1,075 mls @ 60 mls/hr IV .[id number] [facility] Last Admin: 08/24/18 16:35 Dose: 60 mls/hr Magnesium Oxide (Mag-Ox) 400 mg PO BID [facility] Methylprednisolone (Solu-Medrol) 40 mg IVP DAILY [facility] Last Admin: 08/24/18 09:11 Dose: 40 mg Midodrine (Proamatine) 5 mg PO TID [facility] Last Admin: 08/24/18 13:16 Dose: 5 mg Pantoprazole Sodium (Protonix Ec Tab) 40 mg PO 0600,1600 [facility] Last Admin: 08/23/18 17:58 Dose: 40 mg Potassium Phos/Sodium Phos (Neutra-Phos) 1 pkt PO DAILY [facility] Propranolol HCl (Inderal) 10 mg PO BID [facility] Last Admin: 08/24/18 09:11 Dose: 10 mg Spironolactone (Aldactone) 25 mg PO DAILY [facility] Last Admin: 08/24/18 09:11 Dose: 25 mg - Labs Labs: 08/24/18 07:00 08/24/18 07:00 PT 11.8 SECONDS (9.4-12.5) 08/21/18 08:20 INR 1.04 08/21/18 08:20 APTT 33.7 Seconds (26.9-38.3) 08/21/18 08:20 - Constitutional Appears: Well, Non-toxic, No Acute Distress - Head Exam Head Exam: ATRAUMATIC, NORMOCEPHALIC - Eye Exam Eye Exam: EOMI, Normal appearance, PERRL - Respiratory Exam Additional comments: Diminished RLL Crackling RML/RUL; LML/LLL Diffuse wheezing - Cardiovascular Exam Cardiovascular Exam: RRR. absent: Murmur - GI/Abdominal Exam GI & Abdominal Exam: Distended (Improved from day before), Soft. absent: Tende rness - Extremities Exam Extremities Exam: Normal Capillary Refill. absent: Pedal Edema - Back Exam Back Exam: absent: CVA tenderness (L), CVA tenderness (R) - Neurological Exam Neurological Exam: Alert, Awake, Oriented x3 - Psychiatric Exam Psychiatric exam: Normal Affect, Normal Mood - Skin Skin Exam: Dry, Intact, Warm Assessment and Plan - Assessment and Plan (Free Text) Assessment: 63M w/ PMH -CKD, Cirrhosis, COPD presented to [facility] on [place] w/ complaints of SOB noted to have Ascites on presentation. Admitted for further management of SOB and ascites in setting of cirrhosis Plan: SOB - 2/2 CHF vs COPD Exacerbation Continues to have wheezing/ crackling on exam; mild SOB on evaluation CT Chest - COPD w/ hyperaration of the lungs; minimal infiltrate at in Left lung base and along R lateral chest wall in lower lobe - interstitial infiltrate or scar in R middle lobe Serology negative for strep pneumo, legionella ; Procal within normal limits Afebrile; no leukocytosis BNP elevated ; ECHO - LVEF 65% w/ Grade III-reversible diastolic dysfunction C/w Solumedrol 40 Q12 - Started 08/22 C/w Cefepime C/w Duoneb Q6H SUKUMAR/ Q2 PRN C/w Robitussin DC Azithromycin ID Following, Appreciate Reccs HFpEF ECHO - LVEF 65% w/ Grade III-reversible diastolic dysfunction BNP elevated on admission Cardiology Consulted, appreciate reccs Ascites in setting of Cirrhosis S/p Paracentesis w/ Dr. Galvin 08/23 - 6400cc Yellow Fluid C/w Aldactone, Propranolol, Midodrine If DC w/ aldactone will need repeat BMP within 1 wk of DC to monitor K+ level Albumin as per GI Cirrhosis - likely 2/2 EtOH abuse Hep C Negative / HIV Negative Patient follows w/ [facility] hepatology Follow up Abd US w/ duplex - Patent protal vein w/ hepatopetal flow GI Following, Appreciate Reccs EARL on CKD As per nephrology Baseline Cr 2.4 Records from [facility] requested; Continue monitoring urine output Continue monitoring BUN/Cr Hold home lasix given elevation from baseline Nephrology Consulted, Appreciate reccs GI/DVT Prophylaxis -Protonix/Heparin Patient was seen, evaluated, discussed w/ attending Dr. Rashida Pratt DO PGY1 - Internal Medicine [employer] <Rashida Pratt R - Last Filed: 08/24/18 22:20> Objective - Vital Signs/Intake and Output Vital Signs (last 24 hours): Temp Pulse Resp BP Pulse Ox 97.4 F L 66 18 116/71 100 08/24/18 14:00 08/24/18 14:00 08/24/18 14:00 08/24/18 14:00 08/24/18 14:00 Intake and Output: 08/24/18 08/25/18 18:59 06:59 Intake Total 900 Balance 900 - Medications Medications: Current Medications Albuterol/Ipratropium (Duoneb 3 Mg/0.5 Mg (3 Ml) Ud) 3 ml IH [id number] Last Admin: 08/24/18 20:24 Dose: Not Given Albuterol/Ipratropium (Duoneb 3 Mg/0.5 Mg (3 Ml) Ud) 3 ml IH Q2H PRN PRN Reason: Shortness of Breath Guaifenesin (Robitussin) 100 mg PO Q4H PRN PRN Reason: Cough Sodium Bicarbonate 75 meq/ (Dextrose) 1,075 mls @ 60 mls/hr IV .[id number] [facility] Last Admin: 08/24/18 16:35 Dose: 60 mls/hr Magnesium Oxide (Mag-Ox) 400 mg PO BID [facility] Last Admin: 08/24/18 17:37 Dose: 400 mg Methylprednisolone (Solu-Medrol) 40 mg IVP DAILY [facility] Last Admin: 08/24/18 09:11 Dose: 40 mg Midodrine (Proamatine) 5 mg PO TID [facility] Last Admin: 08/24/18 17:36 Dose: 5 mg Pantoprazole Sodium (Protonix Ec Tab) 40 mg PO 0600,1600 [facility] Last Admin: 08/24/18 17:36 Dose: 40 mg Potassium Phos/Sodium Phos (Neutra-Phos) 1 pkt PO DAILY [facility] Last Admin: 08/24/18 17:37 Dose: 1 pkt Propranolol HCl (Inderal) 10 mg PO BID [facility] Last Admin: 08/24/18 17:36 Dose: 10 mg Spironolactone (Aldactone) 25 mg PO DAILY [facility] Last Admin: 08/24/18 09:11 Dose: 25 mg - Labs Labs: 08/24/18 07:00 08/24/18 07:00 PT 11.8 SECONDS (9.4-12.5) 08/21/18 08:20 INR 1.04 08/21/18 08:20 APTT 33.7 Seconds (26.9-38.3) 08/21/18 08:20 Attending/Attestation - Attestation I have personally seen and examined this patient.: Yes I have fully participated in the care of the patient.: Yes I have reviewed all pertinent clinical information, including history, physical exam and plan: Yes Notes (Text): Patient seen and examined by me with resident at approximately 11:55AM on 08/24/18. Case including HPI, physical exam, and assessment and plan discussed with resident. Agree with above with following additions/corrections. Patient states that he is feeling weak. Still feels short of breath. Patient not answering all questions. States he is not feeling better even after paracentesis yesterday. Patient denies chest pain or palpitations. Unable to obtain other review of systems from patient as patient not answering all questions. Physical exam: General: Awake and alert lying in bed in no acute distress, cachectic appearing HEENT: Normocephalic, atraumatic. Extraocular muscles intact. Pupils equal and reactive, no scleral icterus. Oropharynx is pink and moist. Neck is supple. Cardiovascular: Normal rhythm. Normal S1 and S2. No murmurs, rubs, or gallops appreciated Pulmonary: Normal respiratory effort. No rhonchi, rales, or wheezing appreciated Gastrointestinal: Soft, much improved distention. Improved generalized tenderness. Positive bowel sounds all 4 quadrants. No guarding. Musculoskeletal: Moves all extremities. No calf tenderness. No edema appreci ated. Central nervous system: AAOx3, no focal deficits Dermatologic: Skin warm and dry. Assessment and plan: Patient is a 63 year old male with past medical history significant for liver cirrhosis, ascites, alcohol abuse, and CKD that presented to the emergency room with shortness of breath. 1. Shortness of breath. Likely multifactorial secondary to likely COPD, possible pneumonia, and severe ascites. S/P paracentesis 08/23/18 with 6.4L removed. Also with diastolic CHF, cardiology consulted. ID recommendations appreciated. Antibiotics stopped. Procalcitonin 0.17. Continue nebulizer treatments and solumedrol. Taper solumedrol. Continue spironolactone. Lasix held secondary to renal function. 2D echo per bar machine operator production showed normal chamber size, EF 65%, mitral regurgitation is trace, trace tricuspid regurgitation, trace pericardial effusion, large left pleural effusion, no vegetation or thrombus noted, transmitral doppler flow patter is grade 3 reversible restrictive diastolic dysfunction. Follow up chest xray for pleural effusion. 2. Liver cirrhosis. History alcohol abuse. Continuepropanolol. Continue aldactone. Lasix held secondary to renal function. 3. EARL on CKD. BUN/Cr stable. Nephrology recommendations appreciated. On bicarb drip. Continue to monitor. 4. Anemia. Likely secondary to chronic disease. Patient refused labs. Continue to monitor for now. 5. Diarrhea. C-diff negative. Ova and parasite negative. Stool culture with no growth. Continue to monitor. 6. History of HIV and Hep C as per patient at time of admission. However, HIV 1/2 ag/ab negative, Hep C antibody negative. Patient appears to be poor historian. ID recommendations appreciated. 7. Thrombocytopenia. Patient refused labs today. Likely secondary to liver cirrhosis. Continue to monitor for now. 8. GI/DVT prophylaxis. Protonix/SCDS 9. Patient is a full code. Palliative care following. Case was discussed in detail with the patient regarding current diagnosis, study results, and treatment plan. All questions answered.
[2018-08-24] MEDS: Pantoprazole 40 mg EC Tab PO SCH (17:36)
[2018-08-24] MEDS: Magnesium Oxide 400 mg Tab UD PO SCH (17:37)
[2018-08-24] MEDS: Potassium & Sodium Phosphate PO SCH (17:37)
[2018-08-24 18:21] LABS: FOLATE 4.7 ng/mL
--- NOTE | 2018-08-24 19:23 | PN ---
DATE: 08/24/2018 SUBJECTIVE: The patient is currently seen on 5R, he is not speaking with me. He is lying comfortable in bed. He currently has infusing. MEDICATIONS: Medication list reviewed. The patient is currently on , Aldactone, D5 normal saline at 60 mL an hour, DuoNeb, Inderal, Maxipime, ProAmatine, Protonix, Robitussin, and Solu-Medrol. OBJECTIVE: INTAKE/OUTPUT: Intake is charted at 480 mL, output is charted at 4 mL. His last weight was 130 pounds. VITAL SIGNS: Blood pressure presently is 102/46, temperature 97.8, respiratory rate 80 with a pulse of 67, pulse ox of 99%. HEENT: Shows him to be normocephalic, atraumatic. Conjunctivae are pale. Sclerae are nonicteric. NECK: Supple. No neck vein distention. CHEST: Decreased breath sounds at the left base. No rales, rhonchi or wheezing. CARDIOVASCULAR: Shows a regular rate and rhythm with no audible murmurs, rubs or gallops. On echocardiogram, he had trace mitral regurgitation and tricuspid regurgitation. No S3, no S4, no rub. ABDOMEN: Distended. Positive ascites. No rebound. No guarding. No appreciable masses. EXTREMITIES: Show no lower extremity cyanosis, clubbing or edema. Diminished lower extremity pulses bilaterally. NEURO: Difficult to assess as the patient is hardly communicative. LABORATORY DATA AND IMAGING STUDIES: CBC: White blood cell count 11.6, hemoglobin is 9.8 with a platelet count of 92,000. Chemistries show a sodium of 141, potassium of 4.7, chloride of 117, and CO2 of 16. Anion gap is 13. BUN is up to 62 from 48 on admission. Creatinine is stable in the 3.2 range. Glucose is 112. Calcium is 8.4, corrects to normal for an albumin of 2.8. Phosphorus is low at 2.4. Magnesium is low at 1.6. Procalcitonin is at 0.17. His lactate level was normal at 1.3. Urine showed a urine sodium of less than 5, urine creatinine of 189, fractional secretion of sodium is less than 1%. There are no white blood cells in the urine. TD fluid was tapped, 65 red blood cells, 64 white blood cells. Microbiology: Ascitic fluid cultures are negative at 24 hours. O and P from the stool are negative. Salmonella, Shigella and Campylobacter were negative in stool cultures. C. diff was negative. Blood cultures are negative at 3 days. Abdominal ultrasound done on 08/23/2018 showed a patent portal vein with hepatopetal flow. Previous abdominal ultrasound showed normal kidneys, right kidney 9.1, left kidney borderline low at 8 with normal echogenicity, no hydronephrosis, small cysts in the kidney. Positive severe ascites. ASSESSMENT: Unclear as to what the patient's baseline BUN and creatinine are as most of his records are in [facility]. The patient has a worsening BUN in the setting of either advanced prerenal azotemia or hepatorenal syndrome. The patient is being treated with midodrine for hepatorenal syndrome and hypotension. Sandostatin was not started at this point in time. He does remain on . It would be important to know what his baseline BUN and creatinine are and this information could likely be obtained from his previous doctors at acute care from [facility]. History of cirrhosis of the liver, ascites, history of hepatitis C, history of alcoholic hepatitis with cirrhosis. It appears that the patient has end-stage liver disease. History of human immunodeficiency virus. History of sepsis. Cultures for bacterial peritonitis appear to be negative at 24 hours. Metabolic acidosis. I would suggest changing the patient over from D5 normal saline to D5 with sodium bicarbonate in light of his CO2 level, which is now down to 16. Low phosphorus, low magnesium noted. Supplement with mag oxide cautiously and with phosphorus supplements orally. Expected BUN and creatinine to rise with the use of steroids. Empiric antibiotic therapy under the guidance of Infectious Disease. PLAN: 1. Continue present medications. 2. Agree with . 3. Try and taper steroids when able. 4. Try and obtain baseline BUN and creatinine from [facility]. 5. Need to monitor accurate I's and O's and this was discussed with the staff on 5R. 6. Long-term prognosis is dismal in this patient. Russ Gallo MD [facility] # [phone]
--- NOTE | 2018-08-25 00:39 | PN ---
DATE: 08/24/2018 SUBJECTIVE: The patient is seen in bed, seen earlier today, in no acute distress, nontoxic. He is weak. He says that he was told he is HIV positive and hepatitis C positive in [place]. PHYSICAL EXAMINATION: VITAL SIGNS: Temperature is 97, blood pressure is 116/70, respiratory rate of 18. HEENT: Unremarkable. NECK: Supple. LUNGS: Have decreased breath sounds. HEART: Normal S1 and S2. ABDOMEN: Soft. LABORATORY DATA: Laboratory examination reveals a white count of 11,600 and hemoglobin 9. BUN of 62, creatinine of 3.2. Chemistries are noted. Urinalysis is noted. Peritoneal fluid, there was only 54 wbc's, 100% cells were encountered mononuclear cells. Negative for HIV fourth generation. Urine Legionella is negative. Hepatitis C is negative. Microbiology reveals no growth in ascitic fluid. Blood cultures have no growth. No ova and parasites are noted. Stool for C. difficile toxin and antigen are negative. Blood cultures are negative. Review of orders reveals the patient's abdominal ultrasound is noted. The patient has a patent portal vein with hepatopetal flow. Tory Beaver's note is reviewed. ASSESSMENT AND PLAN: This is a 63-year-old male reported as positive human immunodeficiency virus although here the patient is human immunodeficiency virus negative, hepatitis C is negative. He says he has kidney disease and coronary artery disease. He does have cirrhosis. All the cultures are negative, blood cultures and urine cultures. Minimal infiltrate. We will discontinue cefepime. The patient is on Solu-Medrol. We will follow with you. Tommy Romeo MD
[2018-08-25] MEDS: Albuterol-Ipratrop 3 mg / 0.5 (3 ml) UD IH SCH ×2 (02:00→07:11)
[2018-08-25] MEDS: Pantoprazole 40 mg EC Tab PO SCH (05:01)
[2018-08-25 07:00] LABS: EOS % 0.1 % (1.5-5.0); HEMOGLOBIN 9.9 g/dL (14.0-18.0); LYMPH % 8.6 % (22.0-35.0); MEAN CELL VOLUME 85.6 fl (80.0-105.0); MEAN CORPUSCULAR HGB CONC 32.8 g/dl (31.0-37.0); MEAN PLATELET VOLUME 9.7 fl (7.0-11.0); MONO # 1.1 (0.1-0.6); MONO % 9.5 % (1.0-6.0); RBC 3.53 10^6/uL (3.5-6.1); RED CELL DISTRIBUTION WIDTH 19.1 % (11.5-14.5); WHITE BLOOD COUNT 11.5 10^3/uL (4.5-11.0)
[2018-08-25 07:15] LABS: ALB/GLOB RATIO 0.9 (1.1-1.8); ALBUMIN 3.2 g/dL (3.0-4.8); CALCIUM 8.5 mg/dL (8.4-10.5)
[2018-08-25 07:17] LABS: % CD4 (T HELPER CELL) 28 Percent (30-61); % CD8 (SUPPRESSOR T CELL) 23 Percent (12-42); ABSOLUTE CD4 CELLS 141 Cells/mcL (490-1740); ABSOLUTE CD8 CELLS 114 Cells/mcL (180-1170); ABSOLUTE LYMPHOCYTES 499 Cells/mcL (850-3900); HELPER/SUPPRESSOR RATIO 1.24 Ratio (0.86-5.00)
--- NOTE | 2018-08-25 07:41 | CP.PCM.CON ---
History of Present Illness - History of Present Illness History of Present Illness: Lethargic but respond, no distress Reason for consultation: Cardiac evaluation of echocardiogram result, Grade III diastolic dysfunction. Brief history of present illness: A 63 year old male who came in to the ER due to progressive shortness of breath, abdominal pain with diarrhea.Poor historian. Chart reviewed. History of HIV, hepatitis C, chronic kidney disease, cirhhosis post paracenthesis,cholecystectom, appendectomy, jaw repair s/p work injury, former smoker of 1 1/2ppd for ~30yrs, quit 1yr ago, He was admitted at [facility] [place] recently but signed out against medical advice with similar symptoms. Consult was called due to Grade 3 diastolic dysfunction on echocardiogram. Seen and examined by me and Dr. Segundo Review of Systems - Review of Systems All systems: reviewed and no additional remarkable complaints except Review of Systems: as per HPI Past Patient History - Infectious Disease Hx of Infectious Diseases: None - Tetanus Immunizations Tetanus Immunization: Unknown - Past Social History Smoking Status: Former Smoker - CARDIAC Hx Cardiac Disorders: No (pt denies) Other/Comment: pt denies heart disease but is on midodrine 5 mg tid and propranolol 10 mg bid according to [facility] [phone] - PULMONARY Hx Respiratory Disorders: Yes Hx Pneumonia: Yes - NEUROLOGICAL Hx Neurological Disorder: No - HEENT Hx HEENT Problems: No - RENAL Hx Chronic Kidney Disease: Yes (pt stated "infections & abnormal bloodwork.") - ENDOCRINE/METABOLIC Hx Endocrine Disorders: No - HEMATOLOGICAL/ONCOLOGICAL Hx Hepatitis C: Yes (pt stated "from drinking") Hx Human Immunodeficiency Virus (HIV): Yes (dx 2 yrs ago pt stated) Other/Comment: liver failure, pt stated " I'm on the liver transplant list at [facility] 7 years." - INTEGUMENTARY Hx Dermatological Problems: No - MUSCULOSKELETAL/RHEUMATOLOGICAL Hx Falls: No - GASTROINTESTINAL Hx Gastrointestinal Disorders: Yes (weight loss/ poor appetite) Hx Liver Failure: Yes Other/Comment: presently c/o of diarrhea but is on lactulose prn for const[facility] - GENITOURINARY/GYNECOLOGICAL Hx Genitourinary Disorders: Yes Hx Incontinence: Yes Other/Comment: when asked if he was incontinent of urine and stool he said "yes" - PSYCHIATRIC Hx Substance Use: No - SURGICAL HISTORY Hx Surgeries: Yes Hx Appendectomy: Yes Hx Cholecystectomy: Yes - ANESTHESIA Hx Anesthesia Reactions: No Meds Allergies/Adverse Reactions: Allergies Allergy/AdvReac Type Severity Reaction Status Date / Time No Known Allergies Allergy Verified 08/21/18 07:32 - Medications Medications: Current Medications Albuterol/Ipratropium (Duoneb 3 Mg/0.5 Mg (3 Ml) Ud) 3 ml IH [id number] [facility] Last Admin: 08/25/18 07:11 Dose: 3 ml Albuterol/Ipratropium (Duoneb 3 Mg/0.5 Mg (3 Ml) Ud) 3 ml IH Q2H PRN PRN Reason: Shortness of Breath Guaifenesin (Robitussin) 100 mg PO Q4H PRN PRN Reason: Cough Sodium Bicarbonate 75 meq/ (Dextrose) 1,075 mls @ 60 mls/hr IV .[id number] [facility] Last Admin: 08/24/18 16:35 Dose: 60 mls/hr Magnesium Oxide (Mag-Ox) 400 mg PO BID [facility] Last Admin: 08/24/18 17:37 Dose: 400 mg Methylprednisolone (Solu-Medrol) 40 mg IVP DAILY [facility] Last Admin: 08/24/18 09:11 Dose: 40 mg Midodrine (Proamatine) 5 mg PO TID [facility] Last Admin: 08/24/18 17:36 Dose: 5 mg Pantoprazole Sodium (Protonix Ec Tab) 40 mg PO 0600,1600 [facility] Last Admin: 08/25/18 05:01 Dose: 40 mg Potassium Phos/Sodium Phos (Neutra-Phos) 1 pkt PO DAILY [facility] Last Admin: 08/24/18 17:37 Dose: 1 pkt Propranolol HCl (Inderal) 10 mg PO BID [facility] Last Admin: 08/24/18 17:36 Dose: 10 mg Spironolactone (Aldactone) 25 mg PO DAILY [facility] Last Admin: 08/24/18 09:11 Dose: 25 mg Physical Exam - Constitutional Appears: Non-toxic, No Acute Distress - Head Exam Head Exam: NORMAL INSPECTION, NORMOCEPHALIC - ENT Exam ENT Exam: Mucous Membranes Dry - Neck Exam Neck exam: Positive for: Full Rom, Normal Inspection - Respiratory Exam Respiratory Exam: Decreased Breath Sounds, NORMAL BREATHING PATTERN - Cardiovascular Exam Cardiovascular Exam: +S1, +S2 - GI/Abdominal Exam GI & Abdominal Exam: Normal Bowel Sounds, Soft - Extremities Exam Extremities exam: Positive for: normal capillary refill, normal inspection - Neurological Exam Additional comments: lethargic but responsive - Psychiatric Exam Psychiatric exam: Normal Affect, Normal Mood - Skin Skin Exam: Normal Color, Warm Results - Vital Signs Recent Vital Signs: Last Vital Signs Temp 97.5 F L 08/24/18 22:29 Pulse 68 08/24/18 22:29 Resp 16 08/24/18 22:29 BP 117/69 08/24/18 22:29 Pulse Ox 100 08/24/18 22:29 - Labs Result Diagrams: 08/25/18 06:30 08/25/18 06:30 Labs: Laboratory Results - last 24 hr 08/21/18 08/21/18 08/24/18 12:25 12:25 07:00 WBC RBC Hgb Hct MCV MCH MCHC RDW Plt Count MPV Neut % (Auto) Lymph % (Auto) [place] % (Auto) Eos % (Auto) Baso % (Auto) Lymph # (Auto) [place] # (Auto) Eos # (Auto) Baso # (Auto) Absolute Neuts (auto) Sodium 141 Potassium 4.7 Chloride 117 H Carbon Dioxide 16 L Anion Gap 13 BUN 62 H Creatinine 3.2 H Est GFR ( Amer) 24 Est GFR (Non-Af Amer) 20 Random Glucose 112 H Calcium 8.4 Phosphorus Magnesium Ferritin Total Bilirubin 0.5 AST 52 ALT 29 Alkaline Phosphatase 161 H Total Protein 6.4 Albumin 2.8 L Globulin 3.7 Albumin/Globulin Ratio 0.7 L Vitamin B12 Folate Absolute Lymphs (Flow) 499 L % CD4 Cells 28 L Absolute CD4 Count 141 L T-Help/Suppress Ratio 1.24 % CD8 Cells 23 Absolute CD8 Count 114 L T-Lymph Analys Comment See note HCV RNA Qual (TMA) Not detected 08/24/18 08/25/18 08/25/18 08:00 06:30 06:30 WBC 11.5 H RBC 3.53 Hgb 9.9 L Hct 30.2 L MCV 85.6 MCH 28.0 MCHC 32.8 RDW 19.1 H Plt Count 90 L MPV 9.7 Neut % (Auto) 81.8 H Lymph % (Auto) 8.6 L [place] % (Auto) 9.5 H Eos % (Auto) 0.1 L Baso % (Auto) 0.0 Lymph # (Auto) 1.0 L [place] # (Auto) 1.1 H Eos # (Auto) 0.0 Baso # (Auto) 0.00 Absolute Neuts (auto) 9.37 H Sodium 139 Potassium 4.2 Chloride 113 H Carbon Dioxide 17 L Anion Gap 13 BUN 64 H Creatinine 3.2 H Est GFR ( Amer) 24 Est GFR (Non-Af Amer) 20 Random Glucose 135 H Calcium 8.5 Phosphorus 2.5 Magnesium 1.8 Ferritin 196.0 Total Bilirubin 0.5 AST 50 ALT 35 Alkaline Phosphatase 184 H Total Protein 6.5 Albumin 3.2 Globulin 3.4 Albumin/Globulin Ratio 0.9 L Vitamin B12 > 1000 H Folate 4.7 Absolute Lymphs (Flow) % CD4 Cells Absolute CD4 Count T-Help/Suppress Ratio % CD8 Cells Absolute CD8 Count T-Lymph Analys Comment HCV RNA Qual (TMA) Assessment & Plan - Assessment and Plan (Free Text) Assessment: A 63 year old male who came in to the ER due to progressive shortness of breath, abdominal pain with diarrhea.Poor historian. Chart reviewed. History of HIV, hepatitis C, chronic kidney disease, cirhhosis intermittent paracentesis, cholecystectomy, appendectomy, jaw repair s/p work injury, former smoker of 1 1/2ppd for ~30yrs, quit 1yr ago, He was admitted at [facility] [place] recently but signed out against medical advice with similar symptoms. Echo done and showed LVEF 65%, trace MR/TR, RVSP 24 mmHg, transmitral flow pattern grade III reversible restrictive diastolic dysfunction. Large left pleural effusion, trace pericardial effusion. CT of abdomen showed cirrhosis with severe ascitis, post paracentesis with about 6400 cc. yellowish fluid. EKG showed NSR- 68/min . Abdominal ultrasound done and showed patent portal vein with hepatopetal flow. CT of chest done and showed here is evidence of COPD with hyperaeration of the lungs. There is a bulla along the right chest wall at the junction of the upper and lower lobe. There is a minimal infiltrate at the left lung base and along the right lateral chest wall in the lower lobe. These findings may represent chronic scarring. There is also a minimal interstitial infiltrate or scar in the right middle lobe. Consult was called due to Grade 3 diastolic dysfunction on echocardiogram. Diastolic dysfunction secondary to underlying liver cirrhosis, chronic kidney disease. Will treat medically. Diurese. Start low dose Lasix. Continue Aldactone. Will closely follow up. Renal and GI on consult. Plan: Lethargic but responsive No distress, looks weak Heart rate and blood pressure stable On Solumedrol 40 mg daily, Midorine 5 mg TID,Inderal 10 mg BID Aldactone 25 mg daily Low dose Lasix Diurese Continue current medications Continue current treatment Will closely follow up Plan and treatment discussed with Dr. Segundo Thank you Dr. Pratt for the opportunity of taking care of Babatunde Moserudhry - Date & Time Date: 08/25/18 Time: 06:30
[2018-08-25 07:50] LABS: IRON 36 ug/dL (45-180)
[2018-08-25 07:51] VITALS: BP 124/73; RESP 18; TEMP 97.4; O2SAT 98
[2018-08-25 08:00] LABS: % IRON SATURATION 17 % (20-55); TOTAL IRON BINDING CAPACITY 214 ug/dL (261-462)
--- NOTE | 2018-08-25 08:39 | RAD ---
Date of service: 08/25/2018 HISTORY: left pleural effusion COMPARISON: No prior. TECHNIQUE: 1 view obtained. FINDINGS: LUNGS: No active pulmonary disease. PLEURA: No significant pleural effusion identified, no pneumothorax apparent. CARDIOVASCULAR: Aortic calcification Normal cardiac size. No pulmonary vascular congestion. OSSEOUS STRUCTURES: No significant abnormalities. VISUALIZED UPPER ABDOMEN: Normal. OTHER FINDINGS: None. IMPRESSION: No active disease.
[2018-08-25] MEDS: MethylPREDNISolone 40 mg Vial IVP SCH (09:26)
[2018-08-25] MEDS: Potassium & Sodium Phosphate PO SCH (09:30)
[2018-08-25 09:31] VITALS: PULSE 64
[2018-08-25] MEDS: Magnesium Oxide 400 mg Tab UD PO SCH (09:31)
--- NOTE | 2018-08-25 10:43 | CP.PCM.PN ---
<Devan Pratt - Last Filed: 08/25/18 17:13> Subjective - Date & Time of Evaluation Date of Evaluation: 08/25/18 Time of Evaluation: 09:20 - Subjective Subjective: Devan Pratt Internal Medicine Resident- Consult Note on Behalf of Dr. Ray Subjective: Patient seen and examined at bedside. No acute events overnight. States abdominal pain and SOB have improved relative to baseline s/p paracentesis. Ad mits to tolerating PO intake. Patient denies nausea, vomiting, constipation, bright red blood per rectum, black stools, change in stool caliber. Furthermore, denies chest pain and urinary symptoms. 12 point ROS negative except as indicated in the HPI Physical Examination: - Constitutional Appears: Cachectic, Chronically Ill - Head Exam Head Exam: ATRAUMATIC, NORMOCEPHALIC - Eye Exam Eye Exam: EOMI - ENT Exam ENT Exam: Mucous Membranes Moist - Neck Exam Neck exam: Positive for: Normal Inspection. Negative for: Lymphadenopathy, Tenderness, Thyromegaly - Respiratory Exam Respiratory Exam: Decreased Breath Sounds. absent: Rales, Rhonchi, Wheezes - Cardiovascular Exam Cardiovascular Exam: +S1, +S2. absent: Gallop, Rubs - GI/Abdominal Exam GI & Abdominal Exam: Soft, Tender to palpation, absent: Rebound tenderness, Rigid - Extremities Exam Extremities exam: no clubbing, no cyanosis - Neurological Exam Neurological exam: Alert, CN II-XII Intact, Oriented x3 - Psychiatric Exam Psychiatric exam: Normal Affect, Normal Mood - Skin Skin Exam: Dry, Intact, Normal Color, Warm Studies Reviewed 08/21/2018 Abdominal Ultrasound- Cirrhosis with severe ascites 08/21/2018 CT Chest without contrast- There is evidence of COPD with hyperaeration of the lungs. There is a bulla along the right chest wall at the junction of the upper and lower lobe. There is a minimal infiltrate at the left lung base and along the right lateral chest wall in the lower lobe. These findings may represent chronic scarring. There is also a minimal interstitial infiltrate or scar in the right middle lobe. 08/24/2018 Abdominal ultrasound- Patent portal vein with hepatopetal flow Assessment and Plan Patient is a 63 year old male with a past medical history of HIV (unknown CD4 count or viral load), Hepatitis C, CKD who was admitted for evaluation and treatment of shortness of breath, epigastric pain, fever, chills and diarrhea. Chronic liver cirrhosis in the setting of suspected ETOH abuse- s/p paracentesis 6400cc yellow fluid removed CKD Stage IV Anemia Endorsed by patient to have h/o HIV Endorsed by patient to have History of Hep C - Hepatitis C viral count reviewed- negative - HIV RNA viral count reviewed- negative - continue spironolactone 25mg PO BID- if discharged on this medication please attain BMP within 1 week from discharge for monitoring of potassium - continue Propranolol 10mg BID - recommend restarting home Lasix 40mg daily when creatinine stabilizes (while keeping adequate MAP >65) - follows with [facility] hepatology- recommend following up with specialists upon discharge from hospital Patient case discussed with and plan approved by attending physician, Dr. Ray. Objective - Vital Signs/Intake and Output Vital Signs (last 24 hours): Temp Pulse Resp BP Pulse Ox 97.4 F L 64 18 124/73 98 08/25/18 06:00 08/25/18 09:30 08/25/18 06:00 08/25/18 09:30 08/25/18 06:00 - Medications Medications: Current Medications Albuterol/Ipratropium (Duoneb 3 Mg/0.5 Mg (3 Ml) Ud) 3 ml IH [id number] [facility] Last Admin: 08/25/18 07:11 Dose: 3 ml Albuterol/Ipratropium (Duoneb 3 Mg/0.5 Mg (3 Ml) Ud) 3 ml IH Q2H PRN PRN Reason: Shortness of Breath Furosemide (Lasix) 40 mg IVP DAILY [facility] Last Admin: 08/25/18 09:26 Dose: 40 mg Guaifenesin (Robitussin) 100 mg PO Q4H PRN PRN Reason: Cough Sodium Bicarbonate 75 meq/ (Dextrose) 1,075 mls @ 60 mls/hr IV .[id number] [facility] Last Admin: 08/24/18 16:35 Dose: 60 mls/hr Magnesium Oxide (Mag-Ox) 400 mg PO BID [facility] Last Admin: 08/25/18 09:31 Dose: 400 mg Methylprednisolone (Solu-Medrol) 40 mg IVP DAILY [facility] Last Admin: 08/25/18 09:26 Dose: 40 mg Midodrine (Proamatine) 5 mg PO TID [facility] Last Admin: 08/25/18 09:30 Dose: 5 mg Pantoprazole Sodium (Protonix Ec Tab) 40 mg PO 0600,1600 [facility] Last Admin: 08/25/18 05:01 Dose: 40 mg Potassium Phos/Sodium Phos (Neutra-Phos) 1 pkt PO DAILY [facility] Last Admin: 08/25/18 09:30 Dose: 1 pkt Propranolol HCl (Inderal) 10 mg PO BID [facility] Last Admin: 08/25/18 09:30 Dose: 10 mg Spironolactone (Aldactone) 25 mg PO DAILY [facility] Last Admin: 08/25/18 09:30 Dose: 25 mg - Labs Labs: 08/25/18 06:30 08/25/18 06:30 PT 11.8 SECONDS (9.4-12.5) 08/21/18 08:20 INR 1.04 08/21/18 08:20 APTT 33.7 Seconds (26.9-38.3) 08/21/18 08:20 <Cory,Kovil V - Last Filed: 08/25/18 18:13> Objective - Vital Signs/Intake and Output Vital Signs (last 24 hours): Temp Pulse Resp BP Pulse Ox 97.4 F L 64 18 124/73 98 08/25/18 06:00 08/25/18 09:30 08/25/18 06:00 08/25/18 09:30 08/25/18 06:00 - Labs Labs: 08/25/18 06:30 08/25/18 06:30 PT 11.8 SECONDS (9.4-12.5) 08/21/18 08:20 INR 1.04 08/21/18 08:20 APTT 33.7 Seconds (26.9-38.3) 08/21/18 08:20 Attending/Attestation - Attestation I have personally seen and examined this patient.: Yes I have fully participated in the care of the patient.: Yes I have reviewed all pertinent clinical information, including history, physical exam and plan: Yes Notes (Text): This is an addendum to the G progress report dictated by the resident. Cirrhosis of the liver hep C negative HIV negative, [place] versus alcoholic. Patient has been followed at the [facility] patient need to be closely monitored for electrolytes. Follow-up with the primary doctor and also the liver specialist at the [facility] 08/25/18 18:11
--- NOTE | 2018-08-25 13:02 | CP.PCM.DIS ---
Provider - Provider Date of Admission: 08/21/18 08:59 Attending physician: Rashida Pratt DO Primary care physician: Marek Ha MD Consults: 08/21/18 10:47 Consult [Physician Consult] Routine Comment: Consulting Provider: Tommy Romeo Consulting Physician: Tommy Romeo Reason for Consult: HIV (unknown CD4/viral load); Hep C; SOB/Fever 08/21/18 11:22 Case Management Referral Routine Comment: dc planning Physician Instructions: Reason For Exam: EVALUATION Reason for Referral: Break Up Worker Eval Social Work Referral Routine Comment: dc planning Physician Instructions: Reason For Exam: Evaluation 08/21/18 11:29 Consult [Physician Consult] Routine Comment: Consulting Provider: Tory Beaver Consulting Physician: Tory Beaver Reason for Consult: advanced directive; hiv; hep c 08/21/18 14:00 Inpatient PANTS CUTTER Core Measures Referral Routine Comment: respiratory tract infection Physician Instructions: Reason For Exam: assess Transition In Care/Readmission Reduction Routine Comment: respiratory tract infection Physician Instructions: Reason For Exam: assess 08/22/18 12:16 Palliative Care Consult Routine Comment: Consulting Provider: Tory Beaver Physician Instructions: Reason For Exam: liver disease. goal of care 08/22/18 12:17 Gastroenterology Consult Routine Comment: Consulting Provider: Michela Ray V Consulting Physician: Michela Ray V Reason for Consult: hepatitis C, liver cirrhosis, ascites Physician Consult Routine Comment: Consulting Provider: Mehdi Galvin Consulting Physician: Mehdi Galvin Reason for Consult: abd ascites 08/22/18 13:20 Nephrology Consult Routine Comment: Consulting Provider: Natalia Gonzalez Consulting Physician: Natalia Gonzalez Reason for Consult: Cr 3.2, CKd vs EARL 08/24/18 11:24 Cardiology Consult Routine Comment: Consulting Provider: Meg Segundo Consulting Physician: Meg Segundo Reason for Consult: Grade III diastolic dysfunction 08/25/18 07:31 Break Up Worker [Case Management Referral] Routine Comment: Physician Instructions: Reason For Exam: home situation Reason for Referral: Discharge Planning Time Spent in preparation of Discharge (in minutes): 40 Diagnosis - Discharge Diagnosis (1) Cirrhosis Status: Acute (2) Ascites Status: Acute (3) COPD (chronic obstructive pulmonary disease) Status: Acute Hospital Course - Lab Results Lab Results: Micro Results 08/23/18 16:49 Ascitic Fluid Gram Stain - Final 08/23/18 16:49 Ascitic Fluid Anaerobic Culture - Final NO ANAEROBES ISOLATED. 08/23/18 16:49 Ascitic Fluid Body Fluid Culture - Preliminary NO GROWTH AFTER 2 DAYS 08/21/18 08:40 Blood-Venous Blood Culture - Preliminary NO GROWTH AFTER 4 DAYS 08/21/18 08:20 Blood-Venous Blood Culture - Preliminary NO GROWTH AFTER 4 DAYS 08/21/18 14:30 Stool Stool Culture - Final NO SALMONELLA, SHIGELLA OR CAMPYLOBACTER ISOLATED. 08/21/18 14:30 Stool C. difficile Antigen & Toxins A,B - Final 08/21/18 14:30 Stool Ova and Parasite Concentrate Exam - Final Most Recent Lab Values WBC 11.5 10^3/uL (4.5-11.0) H 08/25/18 06:30 RBC 3.53 10^6/uL (3.5-6.1) 08/25/18 06:30 Hgb 9.9 g/dL (14.0-18.0) L 08/25/18 06:30 Hct 30.2 % (42.0-52.0) L 08/25/18 06:30 MCV 85.6 fl (80.0-105.0) 08/25/18 06:30 MCH 28.0 pg (25.0-35.0) 08/25/18 06:30 MCHC 32.8 g/dl (31.0-37.0) 08/25/18 06:30 RDW 19.1 % (11.5-14.5) H 08/25/18 06:30 Plt Count 90 10^3/uL (120.0-450.0) L 08/25/18 06:30 MPV 9.7 fl (7.0-11.0) 08/25/18 06:30 Neut % (Auto) 81.8 % (50.0-68.0) H 08/25/18 06:30 Lymph % (Auto) 8.6 % (22.0-35.0) L 08/25/18 06:30 [place] % (Auto) 9.5 % (1.0-6.0) H 08/25/18 06:30 Eos % (Auto) 0.1 % (1.5-5.0) L 08/25/18 06:30 Baso % (Auto) 0.0 % (0.0-3.0) 08/25/18 06:30 Lymph # (Auto) 1.0 (1.2-3.4) L 08/25/18 06:30 [place] # (Auto) 1.1 (0.1-0.6) H 08/25/18 06:30 Eos # (Auto) 0.0 (0.0-0.7) 08/25/18 06:30 Baso # (Auto) 0.00 K/mm3 (0.0-2.0) 08/25/18 06:30 Absolute Neuts (auto) 9.37 (1.4-6.5) H 08/25/18 06:30 PT 11.8 SECONDS (9.4-12.5) 08/21/18 08:20 INR 1.04 08/21/18 08:20 APTT 33.7 Seconds (26.9-38.3) 08/21/18 08:20 pO2 34 mm/Hg (30-55) 08/21/18 08:40 VBG pH 7.23 (7.32-7.43) L 08/21/18 08:40 VBG pCO2 41.0 (40-60) 08/21/18 08:40 VBG HCO3 17.2 mmol/l (21-28) L 08/21/18 08:40 VBG Total CO2 18.5 mmol.L (22-28) L 08/21/18 08:40 VBG O2 Sat (Calc) 64.9 % (40-65) 08/21/18 08:40 VBG Base Excess -9.9 mmol/L (0.0-2.0) L 08/21/18 08:40 VBG Potassium 3.7 mmol/L (3.6-5.2) 08/21/18 08:40 Sodium 135.0 mmol/L (132-148) 08/21/18 08:40 Chloride 111.0 mmol/L (98-107) H 08/21/18 08:40 Glucose 100 mg/dl (75-110) 08/21/18 08:40 Lactate 1.3 mmol/L (0.7-2.1) 08/21/18 08:40 FiO2 21.0 % 08/21/18 08:40 Sodium 139 mmol/L (132-148) 08/25/18 06:30 Potassium 4.2 mmol/L (3.6-5.0) 08/25/18 06:30 Chloride 113 mmol/L (98-107) H 08/25/18 06:30 Carbon Dioxide 17 mmol/L (21-33) L 08/25/18 06:30 Anion Gap 13 (10-20) 08/25/18 06:30 BUN 64 mg/dL (7-21) H 08/25/18 06:30 Creatinine 3.2 mg/dl (0.8-1.5) H 08/25/18 06:30 Est GFR ( Amer) 08/25/18 06:30 Est GFR (Non-Af Amer) 08/25/18 06:30 Random Glucose 135 mg/dL (70-110) H 08/25/18 06:30 Calcium 8.5 mg/dL (8.4-10.5) 08/25/18 06:30 Phosphorus 2.5 mg/dL (2.5-4.5) 08/25/18 06:30 Magnesium 1.8 mg/dL (1.7-2.2) 08/25/18 06:30 Iron 36 ug/dL (45-180) L 08/25/18 06:30 TIBC 214 ug/dL (261-462) L 08/25/18 06:30 % Saturation 17 % (20-55) L 08/25/18 06:30 Ferritin 196.0 ng/mL 08/24/18 08:00 Total Bilirubin 0.5 mg/dL (0.2-1.3) 08/25/18 06:30 AST 50 U/L (17-59) 08/25/18 06:30 ALT 35 U/L (7-56) 08/25/18 06:30 Alkaline Phosphatase 184 U/L (38-126) H 08/25/18 06:30 Lactate Dehydrogenase 505 U/L (333-699) 08/21/18 08:20 NT-Pro-B Natriuret Pep 1790 pg/mL (0-450) H 08/21/18 08:40 Total Protein 6.5 g/dL (5.8-8.3) 08/25/18 06:30 Albumin 3.2 g/dL (3.0-4.8) 08/25/18 06:30 Globulin 3.4 gm/dL 08/25/18 06:30 Albumin/Globulin Ratio 0.9 (1.1-1.8) L 08/25/18 06:30 Vitamin B12 > 1000 pg/mL (239-931) H 08/24/18 08:00 Folate 4.7 ng/mL 08/24/18 08:00 Procalcitonin 0.17 NG/ML (0.19-0.49) L 08/21/18 12:25 Thyroxine (T4) 4.0 ug/dL (5.5-11.0) L 08/25/18 06:30 TSH 3rd Generation 2.39 mIU/mL (0.46-4.68) 08/25/18 06:30 Venous Blood Potassium 3.7 mmol/L (3.6-5.2) 08/21/18 08:40 Urine Color Yellow (YELLOW) 08/22/18 09:00 Urine Appearance Clear (CLEAR) 08/22/18 09:00 Urine pH 6.0 (4.7-8.0) 08/22/18 09:00 Ur Specific [place] 1.010 (1.005-1.035) 08/22/18 09:00 Urine Protein Trace mg/dL (<30 mg/dL) H 08/22/18 09:00 Urine Glucose (UA) Negative mg/dL (NEGATIVE) 08/22/18 09:00 Urine Ketones Trace mg/dL (NEGATIVE) H 08/22/18 09:00 Urine Blood Negative (NEGATIVE) 08/22/18 09:00 Urine Nitrate Negative (NEGATIVE) 08/22/18 09:00 Urine Bilirubin Negative (NEGATIVE) 08/22/18 09:00 Urine Urobilinogen 0.2 E.U./dL (<1 E.U./dL) 08/22/18 09:00 Ur Leukocyte Esterase Negative [place]/uL (NEGATIVE) 08/22/18 09:00 Urine RBC 0 - 2 /hpf (0-2) 08/22/18 09:00 Urine WBC 0 - 2 /hpf (0-6) 08/22/18 09:00 Ur Epithelial Cells None /hpf (0-5) 08/22/18 09:00 Urine Bacteria Few /hpf (NONE) 08/22/18 09:00 Ur Random Creatinine 189 mg/dL 08/22/18 09:00 Ur Random Sodium < 5 meq/L 08/22/18 09:00 Fluid Source Peritoneal/ascites 08/23/18 16:49 Fluid Appearance Clear (CLEAR) 08/23/18 16:49 Fluid WBC 64.0 /uL (0.0-300.0) 08/23/18 16:49 Fluid RBC 65.0 /uL (0.0-0.0) H 08/23/18 16:49 Fluid Tot Cell Count 100 (0-0) H 08/23/18 16:49 Fluid Mononuclear Cell 82.8 % (0-0) H 08/23/18 16:49 Fl Polymorphonucl Cell 17.2 % (0-0) H 08/23/18 16:49 Fluid Comment Light yellow 08/23/18 16:49 Urine Opiates Screen Negative (NEGATIVE) 08/22/18 09:00 Urine Methadone Screen Negative (NEGATIVE) 08/22/18 09:00 Ur Barbiturates Screen Negative (NEGATIVE) 08/22/18 09:00 Ur Phencyclidine Scrn Negative (NEGATIVE) 08/22/18 09:00 Ur Amphetamines Screen Negative (NEGATIVE) 08/22/18 09:00 U Benzodiazepines Scrn Negative (NEGATIVE) 08/22/18 09:00 U Oth Cocaine Metabols Negative (NEGATIVE) 08/22/18 09:00 U Cannabinoids Screen Negative (NEGATIVE) 08/22/18 09:00 Absolute Lymphs (Flow) 499 Cells/mcL (850-3900) L 08/21/18 12:25 % CD4 Cells 28 Percent (30-61) L 08/21/18 12:25 Absolute CD4 Count 141 Cells/mcL (490-1740) L 08/21/18 12:25 T-Help/Suppress Ratio 1.24 Ratio (0.86-5.00) 08/21/18 12:25 % CD8 Cells 23 Percent (12-42) 08/21/18 12:25 Absolute CD8 Count 114 Cells/mcL (180-1170) L 08/21/18 12:25 T-Lymph Analys Comment See note 08/21/18 12:25 Hepatitis A IgM Ab Negative (NEGATIVE) 08/21/18 08:40 Hep Bs Antigen Negative (NEGATIVE) 08/21/18 08:40 Hep B Core IgM Ab Negative (NEGATIVE) 08/21/18 08:40 Hepatitis C Antibody Negative (NEGATIVE) 08/21/18 08:40 HCV RNA Qual (TMA) Not detected 08/21/18 12:25 HIV 1&2 Ag/Ab, 4th Gen Nonreactive (Nonreactive) 08/21/18 12:25 Ur L.pneumophila Ag Negative (NEGATIVE) 08/22/18 09:00 S. pneumoniae Antigen Negative (NEGATIVE) 08/22/18 09:00 Blood Type B POSITIVE 08/21/18 08:20 Blood Type Confirm B POSITIVE 08/21/18 08:40 Antibody Screen Negative 08/21/18 08:20 BBK History Checked No verified bt 08/21/18 08:20 - Hospital Course Hospital Course: 63M w/ PMH -CKD, Cirrhosis, COPD presented to [facility] on [place] w/ complaints of SOB noted to have Ascites on presentation. Admitted for further management of SOB and ascites in setting of cirrhosis. Patient initially self reported hx of HepC and HIV upon admission; Viral panels for both diseases were negative. IR was consulted after admission for evaluation; patient subsequently underwent paracentesis on 08/[address] Galvin - drained 6400cc yellow fluid. GI Evaluated patient suspect cirrhosis is 2/2 alcohol abuse. Abd US performed - patent portal vein w/ good hepatopetal flow. SOB was thought to be 2/2 CHF vs COPD vs PNA. SOB treated w/ steroid, cefepime, azithromycin, and bronchodilators. CT Chest - COPD w/ hyperaration of the lungs; minimal infiltrate at in Left lung base and along R lateral chest wall in lower lobe - interstitial infiltrate or scar in R middle lobe. Patient also had cardiology consulted during admission due to possibility of CHF w/ elevated BNP ECHO performed - LVEF 65% w/ Grade III-reversible diastolic dysfunction Cr noted to be elevated during admission; Baseline Cr 2.4 as per nephrology; patient will require furhter workup as outpt. Noted to follow with [facility] hepatology clinic as well as Dr. Margareth Haq. Prior seen and examined this morning at bedside; No acute events overnight Patient voices complaints of mild SOB however requesting to go home. Family at bedside as well; agreeable to discharge and follow up plan Patient was seen, examined, and discussed w/ attending Dr. Valencia. Discharge Exam - Head Exam Head Exam: NORMAL INSPECTION, NORMOCEPHALIC - Eye Exam Eye Exam: EOMI, Normal appearance, PERRL - Respiratory Exam Additional comments: Mild crackles bilaterally - Cardiovascular Exam Cardiovascular Exam: RRR. absent: Systolic Murmur - GI/Abdominal Exam Additional comments: Distended Dull Minimal tenderness - Neurological Exam Neurological exam: Alert, Oriented x3 - Psychiatric Exam Psychiatric exam: Normal Affect, Normal Mood - Skin Skin Exam: Dry, Normal Color, Warm Discharge Plan - Discharge Medications Prescriptions: Cholecalciferol (Vitamin D3) [Vitamin D3] 50,000 unit PO QWK #2 capsule Cyanocobalamin [Vitamin B12 1000 mcg Tab] 1,000 mcg PO DAILY #7 tab Furosemide [Lasix] 40 mg PO DAILY 7 Days #7 tab Lactulose [Generlac] 10 gm PO DAILY PRN 7 Days #7 dose PRN Reason: Constipation Magnesium Oxide [Mag-Ox] 400 mg PO BID #14 tab Midodrine [Proamatine] 5 mg PO TID 7 Days #21 tab Pantoprazole Sodium [Protonix] 40 mg PO BID 7 Days #14 tablet. Phosphorus/Potassium/Sodium [Neutra-Phos] 1 pkt PO DAILY #7 packet Propranolol [Inderal] 10 mg PO BID 7 Days #14 tab Rifaximin [Xifaxan] 550 mg PO BID #14 tablet Simethicone [Gas Relief] 125 mg PO DAILY #7 capsule Spironolactone [Aldactone] 25 mg PO DAILY #7 tab - Follow Up Plan Condition: GUARDED Disposition: HOME/ ROUTINE Instructions: Cirrhosis (DC), Exacerbation of COPD (DC) Additional Instructions: Please follow up with your primary care doctor Dr Ha in 3-5 days. Your CD4 count was low, 141 cells/mcL. Please follow up with Dr Ha outak tie in 3-5 days. [address] follow up with [facility] as scheduled for your liver transplant. Please take your home medications as prescribed. Take Medrol dose pack for your COPD. Return to the Emergency room for any worsening of symptoms. Referrals: Marek Ha MD [Primary Care Provider] -
--- NOTE | 2018-08-25 16:27 | PCM.PPROG ---
History of Present Illness - History of Present Illness History of Present Illness: Alert, no complaints Physical Exam - Constitutional Appears: Cachectic, Chronically Ill - Eye Exam Eye Exam: Normal appearance, PERRL - ENT Exam ENT Exam: Mucous Membranes Moist - Respiratory Exam Respiratory Exam: Decreased Breath Sounds, NORMAL BREATHING PATTERN - Cardiovascular Exam Cardiovascular Exam: REGULAR RHYTHM, +S1, +S2 - GI/Abdominal Exam GI & Abdominal Exam: Distended, Normal Bowel Sounds, Soft - Extremities Exam Extremities exam: Positive for: pedal edema, pedal pulses present - Neurological Exam Neurological exam: Alert - Skin Skin Exam: Dry, Pallor Palliative Care Assessment - Modified MRC Dyspnea Scale Modified MRC Dyspnea Scale: Has to stop for breath when walking at own pace Grade: 3 - Pain Description Intensity of pain at present: 2 Pain Behavior: Guarding, Restlessness Aggravating Factors: Exercise/Activity, Walking, Stair Climbing Alleviating Factors/Management Techniques: Medication, Position Change - [place] Scale Sensory Perception: Slightly Limited Moisture: Occasionally Moist Activity: Bedfast Mobility: Very Limited Nutrition: Probably Inadequate Friction & Shear: Potential Problem Total Score - Skin Risk Assessment: 13 - Psychosocial Distress Patient screened for psychosocial distress: Yes Outcome: Referred to director social service - Goals Treatment Goal(s): Alleviate symptoms, Improve ADLs, Improve quality of life End of life care discussed: Yes - Plan Interdisciplinary involved: career manager, Physician Discharge planning: Home Assessment & Plan - Assessment and Plan (Free Text) Assessment: 63 year old male with history of cirrhosis who is admitted with shortness of breath, ascites, abdominal pain Patient's , daughter and son in law at bedside. Goals of care advance care planning discussion ensued. The family states that they understand patient's illness is progressive. They intend to follow up with [facility] Hepatology clinic. The patient does not want to go to rehab prefers t go home. Resuscitation status also discussed.Benefits and burdens of CPR/intubation explained. The patient does not want to decided on this now. He stated that his family will make decisions when the "time comes". Time spent with patient and family in goals of care and and care planning, 30 minutes Plan: Goals of care and advance care palnning Asictes: s/p paracentesis, continue spironolactone,Lasix F/u with [facility] hepatology upon discharge
--- NOTE | 2018-08-25 21:50 | PN ---
DATE: 08/25/2018 SUBJECTIVE: The patient is seen lying in bed. Multiple family members are at bedside. He is comfortable. He does not appear to be in any kind of acute distress. PHYSICAL EXAMINATION VITAL SIGNS: Blood pressure 124/73, heart rate 64, respiratory rate 18, temperature 97.4. HEENT: Normocephalic, atraumatic, positive pallor. NECK: Supple, no JVD. LUNGS: Bilateral equal entry, bilateral equal expansion, no rales. CARDIAC: S1, S2, regular rate and rhythm, no murmur, no rub. ABDOMEN: Distended, soft, positive fluid thrill. EXTREMITIES: No lower study edema. LABORATORY DATA: WBC 11.5, hemoglobin 9.9, hematocrit 30, platelets 90. Sodium 139, potassium 4.2, chloride 113, CO2 of 17, BUN 64, creatinine 3.2, glucose 135, calcium 8.4, phosphorus 2.5, magnesium 1.8, albumin 3.2. Cultures negative. CURRENT MEDICATIONS: Aldactone 25 mg daily, DuoNeb, Inderal 10 mg b.i.d., Lasix 40 mg IV daily, magnesium oxide 400 mg b.i.d., Neutra-Phos 1 packet daily, ProAmatine 5 mg t.i.d., Protonix, Solu-Medrol 40 mg IV daily. ASSESSMENT AND PLAN 1. Alcoholic cirrhosis. 2. Alcoholic liver disease. 3. Recurrent ascites. 4. Cachexia. 5. Chronic kidney disease stage 4 secondary to hepatorenal syndrome. 6. Hepatitis C. 1. Baseline creatinine is anywhere between 2.4 to 3. 2. Mild prerenal azotemia. 3. Push p.o. fluids. 4. Continue intermittent paracentesis. 5. Avoid nephrotoxins. 6. Discussed with family that needs liver transplant. Natalia Gonzalez MD
--- NOTE | 2018-08-25 22:24 | PN ---
DATE: 08/25/2018 SUBJECTIVE: The patient is seen in bed, in no acute distress, nontoxic. PHYSICAL EXAMINATION: VITAL SIGNS: Temperature is 98, blood pressure is 120/70, respiratory rate of 18. HEENT: Unremarkable. NECK: Supple. LUNGS: Have decreased breath sounds. HEART: Normal S1 and S2. ABDOMEN: Soft. LABORATORY DATA: Laboratory examination reveals a white count of 11,500 and hemoglobin of 9. BUN of 36, creatinine of 3.2. Urinalysis is noted. CD4 count reveals the patient has 28% with a CD4 count of 144. HIV PCR is not available; however, hepatitis C PCR is not detectable. HIV fourth generation is negative. Urine Legionella is negative. ASSESSMENT AND PLAN: This is 63-year-old male who states that he was told he was human immunodeficiency virus positive in [place]. Human immunodeficiency virus test is negative as per fourth generation test. Awaiting for human immunodeficiency virus polymerase chain reaction. He was told he has hepatitis C in [place]; however, his hepatitis C antibody is negative and his hepatitis C polymerase chain reaction is negative. He does have cirrhosis. He has kidney disease and coronary artery disease. Currently off of antibiotics. He is being followed by [facility] in [place]. Tommy Romeo MD
[2018-08-26 07:48] LABS: LDH PERITONEAL FLUID 25 U/L (<63); TOTAL PROTEIN PERITONEAL FLUID <3.0 g/dL
== END 2018-08-25 14:24 | disposition home health service (06) | DRG 432 ==
LOC: ED 07:16 → ERH 08:59 → 5RNO 12:20
PROVIDERS: ADMIT Internal Medicine; ATTEND Hospitalist
PROC: 0W9G3ZX Drainage of Peritoneal Cavity, Percutaneous Approach, Diagnostic (ICD-10-PCS; principal; 2018-08-23 13:00)
DX: K70.31 Alcoholic cirrhosis of liver with ascites (principal); K76.7 Hepatorenal syndrome; J18.9 Pneumonia, unspecified organism; I50.31 Acute diastolic (congestive) heart failure; J44.0 Chronic obstructive pulmonary disease with (acute) lower respiratory infection; N17.9 Acute kidney failure, unspecified; J44.1 Chronic obstructive pulmonary disease with (acute) exacerbation; N18.4 Chronic kidney disease, stage 4 (severe); E87.2 Acidosis; R64 Cachexia; Z21 Asymptomatic human immunodeficiency virus [HIV] infection status; F10.10 Alcohol abuse, uncomplicated; D63.8 Anemia in other chronic diseases classified elsewhere; D69.59 Other secondary thrombocytopenia; B18.2 Chronic viral hepatitis C; R19.7 Diarrhea, unspecified; Y95 Nosocomial condition; I25.10 Atherosclerotic heart disease of native coronary artery without angina pectoris; Z68.20 Body mass index [BMI] 20.0-20.9, adult; Z76.82 Awaiting organ transplant status; Z87.891 Personal history of nicotine dependence